=== PATIENT | female | born 1960 | race Caucasian/White ===

== ENCOUNTER → 2016-11-01 | Outpatient (CLI) | payer OTHER ==
--- NOTE | 2016-11-02 14:31 | MAMMOGRAPHY REPORT ---
BILATERAL DIGITAL SCREENING MAMMOGRAM TOMOSYNTHESIS WITH CAD: 11/01/2016 CLINICAL HISTORY: Routine screening. Patient has no complaints. TECHNIQUE: Breast tomosynthesis in addition to standard 2D mammography was performed. Current study was also evaluated with a Computer Aided Detection (CAD) system. COMPARISON: Comparison is made to exams dated: 10/24/2015 mammogram, 10/18/2014 mammogram, 10/15/2013 cailin mogram, 09/30/2012 mammogram, 09/24/2011 mammogram, and 03/23/2011 mammogram - [facility] BREAST COMPOSITION: The tissue of both breasts is heterogeneously dense, which may obscure small mas ses. FINDINGS: No suspicious masses, calcifications, or areas of architectural distortion are noted in ei ther breast. There has been no significant interval change compared to prior exams. Scattered bilater al benign-appearing calcifications are not significantly changed. Fluctuating benign-appearing mike s are again noted bilaterally, best seen on the tomosynthesis images, which are considered benign giv en the multiplicity and bilaterality and likely represent cysts, with cysts seen on prior ultrasound exams. IMPRESSION: ACR BI-RADS CATEGORY 2: BENIGN There is no mammographic evidence of malignancy. A 1 year screening mammogram is recommended. The pa tient will receive written notification of the results. Approximately 10% of breast cancers are not detected with mammography. A negative mammographic report should not delay biopsy if a clinically suggestive mass is present. Savannah Huitron M.D. /:11/01/2016 15:58:05 Tank Maker Wood: Maranda Dudley, M, [facility] letter sent: Normal 1/2 BI-RADS Code: ACR BI-RADS Category 2: Benign
== END | disposition home or self-care (01) ==
LOC: C.MAMM 15:30
PROVIDERS: ATTEND Obstetrics & Gynecology
DX: Z12.31 Encounter for screening mammogram for malignant neoplasm of breast (principal)

== ENCOUNTER 2017-05-05 01:54 | Inpatient (IN) | payer BC, OTHER ==
[~2017-05-05] VITALS: Ht 160 cm; Wt 98.1 kg
[2017-05-05] VITALS (30 sets, daily range): BP systolic 86–168; BP diastolic 69–105; PULSE 71–102; TEMP 36.5–37.5; O2SAT 92–99; Ht 160 cm; Wt 98.1 kg
[2017-05-05] MEDS ORDERED: NITROGLYCERIN/D5W 100MCG/ML 20ML SYR ONE (01:55)
[2017-05-05] MEDS ORDERED: MIDAZOLAM HCL 1 MG/ML 2ML VIAL ONE (01:55)
[2017-05-05] MEDS ORDERED: NiCARDipine HCL INJ 2.5 MG/ML 10 ML AMP ONE (01:55)
[2017-05-05] MEDS ORDERED: HEPARIN SOD (PORCINE) 1000 UNIT/ML 10 ML VIAL ONE (01:55)
[2017-05-05] MEDS ORDERED: FENTANYL CITRATE INJ 50 MCG/1 ML 2 ML VIAL ONE (01:56)
[2017-05-05] MEDS: FENTANYL CITRATE INJ 50 MCG/1 ML 2 ML VIAL ONE (01:58)
--- NOTE | 2017-05-05 02:06 | Pre Sedation Assessment ---
Pre Sedation Assessment General Date of Sedation: May 05, 2017. Vital Signs Past 12 Hours Date Time Temp Pulse Resp B/P (MAP) Pulse Ox O2 Delivery O2 Flow Rate FiO2 05/05/17 01:58 36.8 91 20 198/110 94 Room Air Review Cardiovascular: regular rate, rhythm, no edema Lungs: chest non-tender, lungs clear Pre-Sedation Airway Assessment Smoking Status: Never Smoker Hx of Sleep Apnea: No Hx of difficult intubation: No Short Thick Neck: No Thyro-mental Distance: > 3 Finger Breadths Mallampati Classification: Class II ASA Classification: Class III Procedure Planning Contraindications for Sedation: None Current Medications Reviewed: Yes Notes The planned sedation has been discussed with the patient. Informed Consent was obtained. I have identified the patient, determined the appropriateness of sedation and have assessed the patient immediately prior to the procedure. All medicine(s) and interventions are by my order.
[2017-05-05] MEDS ORDERED: METO25TA4 PO (02:11)
[2017-05-05] MEDS ORDERED: ASPI81TA28 PO (02:12)
[2017-05-05] MEDS ORDERED: MULT-506 PO (02:12)
[2017-05-05] MEDS ORDERED: CALC500C3 PO (02:13)
[2017-05-05 02:15] LABS: BASO % 0.6 %; BASO ABS # 0.06 K/uL (0-0.2); EOS % 1.8 %; EOS ABS # 0.17 K/uL (0-0.5); HEMATOCRIT 44.1 % (37-47); HEMOGLOBIN 14.9 g/dL (12.0-16.0); IG# 0.02 K/uL (0.00-0.02); LYMPH % 33.2 %; LYMPH ABS # 3.14 K/uL (1.2-3.4); MEAN CELL VOLUME 86.3 fL (80-100); MEAN CORPUSCULAR HEMOGLOBIN 29.2 pg (25-34); MEAN CORPUSCULAR HGB CONC 33.8 g/dl (32-36); MEAN PLATELET VOLUME 10.3 fL (7.4-10.4); MONO % 5.2 %; MONO ABS # 0.49 K/uL (0.11-0.59); NEUT ABS # 5.57 K/uL (1.4-6.5); PLATELET COUNT 303 K/uL (130-400); RED CELL DISTRIBUTION WIDTH CV 14.3 % (11.5-14.5); RED CELL DISTRIBUTION WIDTH SD 45.3 fL (36.4-46.3); WHITE BLOOD COUNT 9.45 K/uL (4.8-10.8)
[2017-05-05] MEDS ORDERED: ASPIRIN 324 MG CHEW ONE (02:23)
--- NOTE | 2017-05-05 02:26 | EMERGENCY ROOM VISIT NOTE ---
History Report prepared by Malissa: Iftikhar Horvath Under the Supervision of: Dr. Gwen Mcdonnell D.O. First contact with patient: 01:56 Chief Complaint: HEART ALERT Stated Complaint: CHEST PAIN/HEART ALERT History of Present Illness The patient is a 56 year old female who presents to the Emergency Room via EMS with complaints of worsening chest pain that began 2 hours ago. Patient states that the chest pain woke her up from sleep. Patient describes the pain as a 6-8/ 10. She states that after she received one dose of Nitro in the EMS her pain was 2/10. Patient states that her pain is still a 2-3/10 in the ER. Patient denies associated symptoms of shortness of breath. Pertinent past medical history includes SVT. Pertinent family history includes heart attacks on her mother's side. Source of History: patient, EMS Onset: 2 hours ago Position: chest Symptom Intensity: 6-8/10 Timing: worsening Modifying Factors (Relieving): other (Nitro) Associated Symptoms: No SOB Review of Systems See HPI for pertinent positives & negatives. A total of 10 systems reviewed and were otherwise negative. Past Medical & Surgical Medical Problems: (1) Acute chemical pneumonitis (2) Aspiration into respiratory tract (3) BENIGN NEOPLASM LG BOWEL Family History Heart attack Social History Smoking Status: Never Smoker Alcohol Use: none Drug Use: none Marital Status: Housing Status: lives with family Occupation Status: employed Current/Historical Medications Scheduled Aspirin (Aspirin Ec), Unknown Dose PO DAILY Calcium Carbonate (Tums), 1 TAB PO DIRECTED Metoprolol Succinate (Toprol Xl), Unknown Dose PO DAILY Multivitamin (Multivitamin), 1 TAB PO DAILY Allergies Coded Allergies: No Known Allergies (Verified , 05/05/17) Physical Exam Vital Signs Date Time Temp Pulse Resp B/P (MAP) Pulse Ox O2 Delivery O2 Flow Rate FiO2 05/05/17 04:31 36.8 82 20 168/105 96 Mask 13.0 05/05/17 04:00 76 16 165/80 (108) 98 Mask 15 05/05/17 03:45 75 16 160/75 (103) 98 Mask 15 05/05/17 02:08 94 20 173/116 96 Nasal Cannula 2.0 05/05/17 02:04 95 Nasal Cannula 2.0 05/05/17 02:00 94 05/05/17 01:58 36.8 91 20 198/110 94 Room Air Physical Exam HEENT: Head - normocephalic and atraumatic Pupils are equal, round, and reactive to light. Extraocular eye muscles are intact, and sclera are anicteric. Nose - moist nasal mucosa without discharge. Mouth - moist buccal mucosa. Oropharynx is nonerythematous and there is no tonsillar exudate or edema noted. Neck: Supple; no JVD, nuchal rigidity, cervical lymphadenopathy, or auscultated bruits. Heart: Regular rate and rhythm. There is a normal S1 and S2 with no murmurs, clicks, or gallops appreciated. Lungs: Clear to auscultation bilaterally with no wheezes, rales, or rhonchi. Abdomen: Soft, completely nontender, nondistended, with good bowel sounds. There are no palpable pulsatile masses or hepatosplenomegaly. There is no guarding, rigidity, or rebound noted. Extremities: No evidence of cyanosis, clubbing, or edema. There are easily palpable peripheral pulses. Skin: warm and diaphoretic with good turgor and no rashes. Medical Decision & Procedures ER Provider Diagnostic Interpretation: Radiology results as stated below per my interpretation: Chest X-Ray: Mild pulmonary vascular congestion, no obvious plural effusion or consolidation. Laboratory Results Test 05/05/17 02:03 05/05/17 02:05 05/05/17 03:26 Prothrombin Time 10.5 SECONDS (9.0-12.0) Prothromb Time International Ratio 1.0 (0.9-1.1) Activated Partial Thromboplast Time 28.0 SECONDS (21.0-31.0) Partial Thromboplastin Ratio 1.1 Direct Bilirubin < 0.1 mg/dl (0-0.2) Total Creatine Kinase 85 U/L (26-192) Creatine Kinase MB 1.7 ng/ml (0.5-3.6) Creatine Kinase MB Ratio 2.0 (0-3.0) Pro-B-Type Natriuretic Peptide 108 pg/ml (0-900) Bedside Troponin I 0.480 ng/ml (0-0.045) Kaolin Activated Coagulation Time 230 SECONDS (94-140) Laboratory results per my review. Medications Administered Medications (Trade) Dose Ordered Sig/Fabiola Route Start Time Stop Time Status Last Admin Dose Admin Heparin Sodium (Porcine) (Heparin Iv Bolus) 10,000 unit STK-MED ONCE .ROUTE 05/05/17 01:55 05/05/17 01:56 DC 05/05/17 01:55 10,000 UNIT Midazolam HCl (Versed Inj) 2 mg STK-MED ONCE .ROUTE 05/05/17 01:55 05/05/17 01:56 DC 05/05/17 01:55 2 MG Fentanyl Citrate (Fentanyl Inj) 100 mcg STK-MED ONCE .ROUTE 05/05/17 01:58 05/05/17 01:59 DC 05/05/17 01:58 75 MCG Ondansetron HCl (Zofran Inj) 4 mg STK-MED ONCE .ROUTE 05/05/17 03:02 05/05/17 03:03 DC 05/05/17 03:02 4 MG Ondansetron HCl (Zofran Inj) 4 mg STK-MED ONCE .ROUTE 05/05/17 03:14 05/05/17 03:15 DC 05/05/17 03:14 4 MG Eptifibatide (Integrilin Inj) 40 mg STK-MED ONCE IV 05/05/17 03:40 05/05/17 03:41 DC 05/05/17 03:40 40 MG Eptifibatide (Integrilin Inj) 75 mg STK-MED ONCE IV 05/05/17 03:41 05/05/17 03:42 DC 05/05/17 03:41 75 MG Ticagrelor (Brilinta Tab) 180 mg STK-MED ONCE PO 05/05/17 03:47 05/05/17 03:48 DC 05/05/17 03:47 180 MG Metoprolol Tartrate (Lopressor Iv) 5 mg STK-MED ONCE .ROUTE 05/05/17 04:05 05/05/17 04:06 DC 05/05/17 05:09 5 MG Nitroglycerin (Nitroglycerin 2% Oint) 1 inch ONE STAT EXT 05/05/17 04:17 05/05/17 04:18 DC 05/05/17 05:12 1 INCH Promethazine HCl 12.5 mg/Sodium Chloride 50.5 ml @ 204 mls/hr NOW STAT IV 05/05/17 04:18 05/05/17 04:32 DC 05/05/17 05:12 204 MLS/HR ECG Per My Interpretation Indication: chest pain Rate (beats per minute): 91 Rhythm: normal sinus Findings: ST elevation (Significant ST elevation in V3, V4, and V5) ED Course 0154: A heart alert was called. Past medical records reviewed. The patient was evaluated in room B1. A complete history and physical exam was performed. A second IV lock was initiated and labs were drawn as above. A portable chest x- ray was obtained. A 12-lead EKG was obtained. 0201: Patient's electrocardiogram was interpreted by me. 0210: I discussed the case with Dr. Jackson at the bedside. The patient will go to the [facility]. I updated the patient's who arrived at the bedside. Medical Decision The patient is a 56 year old female who presents to the ED with chest pain. Differential diagnosis includes angina, GERD, STEMI, ACS, and aortic dissection. Lab results show normal renal function, glucose = 134, normal LFTs, troponin = 0.5, normal coags, normal white blood cell count, and stable H&H. This is a 56-year-old female patient who presents to the emergency department with an acute AR. A heart alert was called. This was activated based on a prehospital EKG and history. The patient remained hemodynamically stable while here in the emergency department. She had received nitroglycerin in the field which gave her significant relief of her chest discomfort. The patient had taken aspirin. The case was discussed with cardiology at the bedside. She will go to the [facility] emergently. Medication Reconcilliation Current Medication List: was personally reviewed by me Blood Pressure Screening Patient's blood pressure: Elevated blood pressure Addressed as an inpatient. Impression Primary Impression: ST elevation myocardial infarction (STEMI) of anterior wall Critical Care I have personally spent greater than 30 minutes of critical care time in the direct management of this patient. This includes bedside care, interpretation of diagnostic studies, and testing, discussion with consultants, patient, and family members, and other required patient management activities. This 30 minutes is in excess of all separately billable procedures. Scribe Attestation The scribe's documentation has been prepared under my direction and personally reviewed by me in its entirety. I confirm that the note above accurately reflects all work, treatment, procedures, and medical decision making performed by me. Departure Information Dispostion Being Evaluated By Hospitalist Referrals Brianna, Edgardo,M.D. (PCP) Forms HOME CARE DOCUMENTATION FORM, IMPORTANT VISIT INFORMATION, WORK / SCHOOL INSTRUCTIONS Patient Instructions My [facility]
[2017-05-05 02:30] LABS: ALBUMIN 3.8 gm/dl (3.4-5.0); BLOOD UREA NITROGEN 13 mg/dl (7-18); CALCIUM 10.5 mg/dl (8.5-10.1); CARBON DIOXIDE 26 mmol/L (21-32); CREATININE 0.76 mg/dl (0.60-1.20); GLUCOSE 134 mg/dl (70-99); POTASSIUM 3.6 mmol/L (3.5-5.1); SODIUM 139 mmol/L (136-145)
[2017-05-05 02:42] LABS: ALKALINE PHOSPHATASE 74 U/L (45-117); ALT/SGPT 24 U/L (12-78); AST/SGOT 19 U/L (15-37); CKMB 1.7 ng/ml (0.5-3.6); TOTAL PROTEIN 8.1 gm/dl (6.4-8.2)
[2017-05-05] MEDS ORDERED: ONDANSETRON INJ 2 MG/ML 2 ML VIAL ONE ×2 (03:02→03:14)
[2017-05-05] MEDS ORDERED: EPTIFIBATIDE 2 MG/ML 10 ML VIAL IV ONE (03:40)
[2017-05-05] MEDS ORDERED: EPTIFIBATIDE 0.75 MG/ML 75MG VIAL IV ONE (03:41)
[2017-05-05] MEDS ORDERED: TICAGRELOR 90 MG TAB PO ONE (03:47)
[2017-05-05] MEDS ORDERED: NITROGLYCERIN 2% OINTMENT 30GM TUBE EXT ONE (04:05)
[2017-05-05] MEDS ORDERED: METOPROLOL TARTRATE 1 MG/ML VIAL ONE (04:05)
[2017-05-05] MEDS ORDERED: METOPROLOL TARTRATE 1 MG/ML VIAL IV STA (04:08)
[2017-05-05] MEDS ORDERED: NITROGLYCERIN 2% OINTMENT 30GM TUBE EXT STA (04:17)
[2017-05-05] MEDS ORDERED: PROMETHAZINE HCL INJ 12.5 MG in SODIUM CHLORIDE 0.9% 50ML 50 ML IV STA (04:18)
--- NOTE | 2017-05-05 04:33 | Critical Care Consultation ---
Critical Care Consultation Date of Consultation: May 05, 2017. 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 Says has hx of SVT but no prior known similar chest pains. Denies concurrent SOB. EMS provided one NTG and four ASA 81 mg, with noted improvement of chest pain from 8/10 to 2/10 on ED arrival. EMS EKG concerning for STEMI, so heart alert called. She was evaluated by cardiology and underwent an emergent cardiac catheterization. Past Medical/Surgical History PMH: Asthma, reflux esophagitis, hyperlipidemia, paroxysmal SVT, paroxysmal atrial tachycardia, osteoarthritis PSH: Breast lumpectomy, LASIK, cholecystectomy Family History Heart attack Social History Smoking Status: Never Smoker Allergies Coded Allergies: No Known Allergies (Verified , 05/05/17) Home Medications Scheduled Aspirin (Aspirin Ec), Unknown Dose PO DAILY Calcium Carbonate (Tums), 1 TAB PO DIRECTED Metoprolol Succinate (Toprol Xl), Unknown Dose PO DAILY Multivitamin (Multivitamin), 1 TAB PO DAILY Current Inpatient Medications Current Inpatient Medications Medications (Trade) Dose Ordered Sig/Fabiola Route Start Time Stop Time Status Last Admin Dose Admin Promethazine HCl 12.5 mg/Sodium Chloride 50.5 ml @ 204 mls/hr NOW STAT IV 05/05/17 04:18 05/05/17 04:32 Review of Systems Constitutional: No fever Respiratory: + cough, No shortness of breath Cardiovascular: + chest pain, No edema Abdomen: + nausea Musculoskeletal: No joint pain Neurologic: + numbness/tingling (jaw) Physical Exam Date Time Temp Pulse Resp B/P (MAP) Pulse Ox O2 Delivery O2 Flow Rate FiO2 05/05/17 04:00 76 16 165/80 (108) 98 Mask 15 05/05/17 03:45 75 16 160/75 (103) 98 Mask 15 05/05/17 02:08 94 20 173/116 96 Nasal Cannula 2.0 05/05/17 02:04 95 Nasal Cannula 2.0 05/05/17 02:00 94 05/05/17 01:58 36.8 91 20 198/110 94 Room Air Gen: Awake, alert, oriented, appears a bit nervous with some improved chest pressure. HEENT: NCAT, PERRL, EOMI, moist oral MM, supple neck. CV: + S1S2 RRR, no murmurs Pulm: Mildly tight breath sounds throughout. Not in acute respiratory distress. Abd: + BS, soft, non-tender, non-distended. Ext: Strength 5/5 distally in all extremities. Moving all extremities easily. No peripheral edema. Right wrist TR band in place. Neuro: No acute focal neuro deficits. Laboratory Results Last 24 Hours Test 05/05/17 02:03 05/05/17 02:05 05/05/17 02:46 05/05/17 03:26 White Blood Count 9.45 K/uL Red Blood Count 5.11 M/uL Hemoglobin 14.9 g/dL Hematocrit 44.1 % Mean Corpuscular Volume 86.3 fL Mean Corpuscular Hemoglobin 29.2 pg Mean Corpuscular Hemoglobin Concent 33.8 g/dl Platelet Count 303 K/uL Mean Platelet Volume 10.3 fL Neutrophils (%) (Auto) 59.0 % Lymphocytes (%) (Auto) 33.2 % Monocytes (%) (Auto) 5.2 % Eosinophils (%) (Auto) 1.8 % Basophils (%) (Auto) 0.6 % Neutrophils # (Auto) 5.57 K/uL Lymphocytes # (Auto) 3.14 K/uL Monocytes # (Auto) 0.49 K/uL Eosinophils # (Auto) 0.17 K/uL Basophils # (Auto) 0.06 K/uL RDW Standard Deviation 45.3 fL RDW Coefficient of Variation 14.3 % Immature Granulocyte % (Auto) 0.2 % Immature Granulocyte # (Auto) 0.02 K/uL Prothrombin Time 10.5 SECONDS Prothromb Time International Ratio 1.0 Activated Partial Thromboplast Time 28.0 SECONDS Partial Thromboplastin Ratio 1.1 Sodium Level 139 mmol/L Potassium Level 3.6 mmol/L Chloride Level 103 mmol/L Carbon Dioxide Level 26 mmol/L Anion Gap 10.0 mmol/L Blood Urea Nitrogen 13 mg/dl Creatinine 0.76 mg/dl Est Creatinine Clear Calc Drug Dose 92.8 ml/min Estimated GFR () 100.2 Estimated GFR (Non- 86.5 BUN/Creatinine Ratio 17.3 Random Glucose 134 mg/dl Calcium Level 10.5 mg/dl Total Bilirubin 0.3 mg/dl Direct Bilirubin < 0.1 mg/dl Aspartate Amino Transf (AST/SGOT) 19 U/L Alanine Aminotransferase (ALT/SGPT) 24 U/L Alkaline Phosphatase 74 U/L Total Creatine Kinase 85 U/L Creatine Kinase MB 1.7 ng/ml Creatine Kinase MB Ratio 2.0 Troponin I 0.573 ng/ml Pro-B-Type Natriuretic Peptide 108 pg/ml Total Protein 8.1 gm/dl Albumin 3.8 gm/dl Bedside Troponin I 0.480 ng/ml Kaolin Activated Coagulation Time 252 SECONDS 230 SECONDS Diagnostic Results Procedure(s) Performed Coronary Angiography, 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 - Moderate caliber 1st diagonal with 80% proximal stenosis Circumflex - Small vessel, 40% ostial stenosis; luminal irregularities in distal vessel and OM3. RCA - Dominant, large vessel, 20-30% ostial stenosis; distal luminal irregularities. -- PCI -- Antithrombotic therapy: Heparin, Integrilin, Ticagrelor Procedure: LM cannulated with EBU 3.5 guide BMW placed into 1st diagonal Prowater wire passed across lesion into distal LAD Proximal LAD lesion predilated with 2.0 compliant balloon Proximal diagonal predilated with 2.0 compliant balloon Dilated diagonal lesion stented with 2.25 x 15 Xience ORLIN back to ostium Proximal LAD stented with 2.75 x 18 Xience ORLIN across take-off of 1st diagonal LAD stent post-dilated with 3.0 noncompliant balloon Diagonal re-wired and stent struts dilated with 2.0 balloon. LAD stent just prior to diagonal appeared hazy, possibly underexpanded and post- dilated again with 3.5 NC balloon. After post-dilation patient developed chest pain, nausea with several episodes of vomiting and ST depressions Repeat angiography revealed RENATO 2 flow in LAD with distal occlusion and new apparent thrombus in diagonal Treated with IC vasodilators, integrilin and gentle balloon inflation in diagonal/distal LAD --> flow re-established Still with mild haziness proximal to to LAD stent and 3.0 x 8 Xience overlapped proximally with prior LAD stent IC vasodilators administered for spasm Post procedure RENATO 3 flow, stents well expanded with minimal residual stenosis. Minimal thrombus in diagonal but no other apparent complications. Patient with mild residual pain and nausea Arterial Closure: TR Band Summary: 1. ACS/Acute thrombotic 90% proximal LAD lesion involving take-off of 1st diagonal with 80% proximal disease. 2. Mild to moderate non-culprit vessel coronary artery disease - 40% ostial circumflex - 20-30% ostial RCA 3. Successful PCI of proximal LAD/diagonal bifurcation with 3 total Xience ORLIN ( 2 LAD 3.0 x 8, 2.75 x 18; 1 Diagonal 2.25 x 15) Recommendations: Admit to ICU for continued monitoring Continue integrilin for 12 hours Nitro paste, morphine for residual chest pain. 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 No suspected acute neuro issues. Pulm: Denies SOB. Normal room SpO2. Clear to auscultation. pCXR clear ( official radiology read pending). No suspected intrinsic acute pulmonary issues. However, did reportedly have a couple episodes of emesis at end of cath. PMH mild asthma as well. - Requiring 15L oxymask for SpO2 93%. Concern for aspiration s/p cath. Ordered pCXR. - Morning rounds addendum: pCXR concerning for an aspiration pneumonitis. Unasyn started by primary team, but will d/c for now. If this chemical pneumonitis does not resolve in the next 48 hours, would consider restart antibiotics then. Procalcitonin was negative. BCx x 2 sent. CVS: STEMI. ED TnI 0.573. BNP 108. Cardiac cath (early this morning) report noted (1) ACS/Acute thrombotic 90% proximal LAD lesion involving take-off of 1st diagonal with 80% proximal disease. (2) Mild to moderate non-culprit vessel coronary artery disease (3) 40% ostial circumflex - 20-30% ostial RCA (4) Successful PCI of proximal LAD/diagonal bifurcation with 3 total Xience ORLIN (2 LAD 3.0 x 8, 2.75 x 18; 1 Diagonal 2.25 x 15). - See above "diagnostic results" cardiology post-cath recommendations. - On arrival to the ICU, post-procedure BP elevated, treated with metoprolol 5 mg IV and NTG one inch to chest. Chest pressure improving. ID: Afebrile. ED WBC 9.4. No suspected acute infectious issues, though see "pulm" above. Endo: No known underlying endocrine issues. ED glucose 134. Monitoring. Renal/Lytes: Cr 0.76. Ca 10.5. Monitoring. - Morning rounds addendum: Providing K dur replacement. GI: ED normal LFT's. No suspected acute intrinsic GI issues, though has post- procedure nausea. Tx with zofran and phenergan. Heme: ED Hb 14.9. INR 1.0. On Integrilin immediately post-cath. Monitoring. Skin: Right TR band in place. Standard site monitoring & post-cath precautions. Lines: Right AC PIV, Left AC PIV. Code status: Full code. DVT prophy: Heparin. PT/OT: Pending. Disposition: ICU s/p catheterization. Resident Physician Supervision Note: Dr. Balderas was resident physician during care of patient. I separately evaluated patient and did history and exam. I discussed the case with the resident and generally agree with the findings and plan. Patient critically ill due to ST elevation NH and aspiration with chemical pneumonitis leading to acute hypoxic respiratory failure. Discontinued antibiotics, if aspiration event does not improve in 48 hours would continue starting at that time. Current treatment paradigms consider early antibiotics of no benefit and possibly select for resistant organisms. I have personally spent 35 minutes of critical care time in the direct management of this patient. This is a life/limb threatening event. This includes time spent evaluating patient, direct bedside care, chart review, placing orders, interpretation of diagnostic studies, discussion with consultants, patient, and/or family members regarding treatment decisions, as well as other required patient management activities. This time is exclusive of all separately billable procedures, and teaching time and separate from and in addition to any other critical care service time. Documented By: Jorden Taylor DO Resident Tracking Resident Involvement: Resident Care Provided Care Provided: Adult Hospital Medicine (ICU care)
--- NOTE | 2017-05-05 04:38 | Cardiac Catheterization ---
Procedure Note Procedure Date May 05, 2017. Pre-Procedure Diagnosis STEMI AUC Score 9 Post-Procedure Diagnosis Severe CAD, Successful PCI Procedure(s) Performed Coronary Angiography, Drug Eluting Stent Grain Elevator Man Manuel Staff Electrical Engineer(s) Sheryl Estimated Blood Loss 20 Medication(s) Integrilin, Nicardipine, Nitroglycerin, Versed, Lidocaine 1% Summary of Findings Indication: STEMI/Heart Alert Access: 6Fr Right Radial Artery Catheters: JR4, EBU 3.5 guides Findings: LM - Short almost separate ostium LAD - Moderate caliber vessel, 90% hazy/thrombotic proximal stenosis just before take-off of 1st diagonal; distal vessel tapers to apex. - Moderate caliber 1st diagonal with 80% proximal stenosis Circumflex - Small vessel, 40% ostial stenosis; luminal irregularities in distal vessel and OM3. RCA - Dominant, large vessel, 20-30% ostial stenosis; distal luminal irregularities. -- PCI -- Antithrombotic therapy: Heparin, Integrilin, Ticagrelor Procedure: LM cannulated with EBU 3.5 guide BMW placed into 1st diagonal Prowater wire passed across lesion into distal LAD Proximal LAD lesion predilated with 2.0 compliant balloon Proximal diagonal predilated with 2.0 compliant balloon Dilated diagonal lesion stented with 2.25 x 15 Xience ORLIN back to ostium Proximal LAD stented with 2.75 x 18 Xience ORLIN across take-off of 1st diagonal LAD stent post-dilated with 3.0 noncompliant balloon Diagonal re-wired and stent struts dilated with 2.0 balloon. LAD stent just prior to diagonal appeared hazy, possibly underexpanded and post- dilated again with 3.5 NC balloon. After post-dilation patient developed chest pain, nausea with several episodes of vomiting and ST depressions Repeat angiography revealed RENATO 2 flow in LAD with distal occlusion and new apparent thrombus in diagonal Treated with IC vasodilators, integrilin and gentle balloon inflation in diagonal/distal LAD --> flow re-established Still with mild haziness proximal to to LAD stent and 3.0 x 8 Xience overlapped proximally with prior LAD stent IC vasodilators administered for spasm Post procedure RENATO 3 flow, stents well expanded with minimal residual stenosis. Minimal thrombus in diagonal but no other apparent complications. Patient with mild residual pain and nausea Arterial Closure: TR Band Summary: 1. ACS/Acute thrombotic 90% proximal LAD lesion involving take-off of 1st diagonal with 80% proximal disease. 2. Mild to moderate non-culprit vessel coronary artery disease - 40% ostial circumflex - 20-30% ostial RCA 3. Successful PCI of proximal LAD/diagonal bifurcation with 3 total Xience ORLIN ( 2 LAD 3.0 x 8, 2.75 x 18; 1 Diagonal 2.25 x 15) Recommendations: Admit to ICU for continued monitoring Continue integrilin for 12 hours Nitro paste, morphine for residual chest pain. Loaded with Ticagrelor in clinical lab specialist Continue dual-antiplatelet therapy for 1 year Trend troponins until peak, Check Echo in AM Uptitrate beta-randy/CARLI as BP allows High-dose statin Consult cardiac Rehab Hemodynamics Rest Ao: 174/97/131 Final Ao: 120/73/94 LV: -- Recommendations PCI without planned CABG Specimens None Radiation Exposure (mGy) 1890 Contrast (mls) 240 Fluids (cc crystalloids) 150 Drains None Anesthesia Moderate Procedural Complication(s) None Disposition ICU ACC Data Cardiac Status Clinical evaluation leading to the procedure CAD Presntation: STEMI Anginal Classification: CCS IV Heart Failure: No, NYHA Class: CCS I Cardiogenic Shock w/in 24Hrs: No Cardiac Arrest w/in 24Hrs: No Imaging studies past 6 months: No Stress studies past 6 months: No Closure Device Percutaneous Entry Location: Radial Closure Device: Radial Band Recommendations: PCI without planned CABG PCI Indication: Immediate PCI for STEMI Lesion Segment Name: Proximal LAD Culprit Artery: Yes Stenosis Prior to Rx (%): 90 Chronic Total Occlusion: No IVUS: No FFR: No Pre-Procedure RENATO Flow: 3 Previously Treated Lesion: No Lesion Complexity: High/C Lesion Length (mm): 15 Thrombus Present: Yes Bifurcation Lesion: Yes Guidewire Across Lesion: Yes Guidewire: Stenosis Post-Procedure (%): 0 Post-Procedure RENATO Flow: 3 Device(s) Deployed: Yes Intraprocedure Events Significant Dissection: No Perforation: No
[2017-05-05] MEDS ORDERED: MoRPHine SULFATE 4 MG/ML 1 ML CARP\\VIAL IV PRN (04:45)
[2017-05-05] MEDS ORDERED: ICU PROTOCOL FOR HYPERGLYCEMIA PRN (04:45)
[2017-05-05] MEDS ORDERED: MoRPHine SULFATE 2 MG/ML CARP IV PRN (04:45)
[2017-05-05] MEDS ORDERED: MAGNESIUM HYDROXIDE SUSP 30 ML UDC PO PRN (04:45)
[2017-05-05] MEDS ORDERED: ALUMINUM/MAGNESIUM/SIMETH (MAALOX MAX) 30 ML UDC PO PRN (04:45)
[2017-05-05] MEDS ORDERED: ACETAMINOPHEN 325 MG TAB PO PRN (04:45)
[2017-05-05] MEDS ORDERED: NITROGLYCERIN 0.4 MG SL PER TAB CHARGE SL PRN ×2 (04:45)
[2017-05-05] MEDS ORDERED: EPTIFIBATIDE BOLUS / DRIP IV ONE (04:45)
[2017-05-05] MEDS ORDERED: ONDANSETRON INJ 2 MG/ML 2 ML VIAL IV PRN (04:45)
[2017-05-05] MEDS ORDERED: SODIUM CHLORIDE 0.9% 500ML 500 ML IV SCH (05:00)
[2017-05-05] MEDS ORDERED: LORAZEPAM 2 MG/ML 1 ML VIAL IV PRN (05:00)
[2017-05-05] MEDS: EPTIFIBATIDE INJ 75 MG PREMIXED IV SCH ×2 (05:16→08:06)
--- NOTE | 2017-05-05 05:25 | History and Physical ---
History & Physical Date & Time of Service: May 05, 2017 at 05:05 Chief Complaint: Stemi Of Anterior Wall Primary Care Physician: Edgardo Reed M.D. History of Present Illness 56 year old female with a past history of palpitations/SVT who presented to the ED as a heart alert. EKG demonstrated ST elevation in the anterolateral leads. The patient was taken immediately to the cardiac catheterization where she had 3 drug-eluting stents deployed Proximal LAD/Proximal Diagonal. It was noted that she had an episode of emesis towards the end of the procedure with concern for possible aspiration. At the time that I made first contact in the ICU, the patient reports she has continued chest discomfort, currently rated 3/10 and radiating to jaw. She does state that the pain is markedly improved from when she first came in. She also reports being short of breath and feeling wheezy. She has not been coughing. She reports mild nausea. She denies abdominal pain. She has not voided since arrival to the hospital. She also states that she is currently feeling quite shaky but has not had fevers , or sweats. A 10 point review of systems was negative unless stated above. Past Medical/Surgical History Medical Problems: (1) BENIGN NEOPLASM LG BOWEL Status: Resolved (2) No Known Active Medical Problems Status: Chronic Family History Heart attack Social History Smoking Status: Never Smoker Smokeless Tobacco Use: No Alcohol Use: none Drug Use: none Marital Status: Housing status: lives with family Occupational Status: employed Multi-Drug Resistant Organisms History of MDRO: No Allergies Coded Allergies: No Known Allergies (Verified , 05/05/17) Home Medications Scheduled Aspirin (Aspirin Ec), Unknown Dose PO DAILY Calcium Carbonate (Tums), 1 TAB PO DIRECTED Metoprolol Succinate (Toprol Xl), Unknown Dose PO DAILY Multivitamin (Multivitamin), 1 TAB PO DAILY Review of Systems A 10 point review of systems was negative unless stated above. Physical Exam Vital Signs Date Time Temp Pulse Resp B/P (MAP) Pulse Ox O2 Delivery O2 Flow Rate FiO2 05/05/17 04:31 36.8 82 20 168/105 96 Mask 13.0 05/05/17 04:00 76 16 165/80 (108) 98 Mask 15 05/05/17 03:45 75 16 160/75 (103) 98 Mask 15 05/05/17 02:08 94 20 173/116 96 Nasal Cannula 2.0 05/05/17 02:04 95 Nasal Cannula 2.0 05/05/17 02:00 94 05/05/17 01:58 36.8 91 20 198/110 94 Room Air General Appearance: WD/WN, + obese Head: normocephalic, atraumatic Eyes: normal inspection, EOMI ENT: hearing grossly normal, pharynx normal Neck: supple, no adenopathy, no JVD Respiratory/Chest: lungs clear, + pertinent finding (coarse breath sounds R > L ; no wheezing) Cardiovascular: regular rate, rhythm, no gallop, no murmur, + tachycardia ( sinus) Abdomen/GI: normal bowel sounds, non tender, soft Back: no muscle spasm Extremities/Musculoskelatal: no calf tenderness, no pedal edema Neurologic/Psych: alert, normal mood/affect, oriented x 3 Skin: normal color, warm/dry, no rash Lymphatic: no adenopathy Diagnostics Laboratory Results Results Past 24 Hours Test 05/05/17 02:03 05/05/17 02:05 05/05/17 02:46 05/05/17 03:26 Range/Units White Blood Count 9.45 4.8-10.8 K/uL Red Blood Count 5.11 4.2-5.4 M/uL Hemoglobin 14.9 12.0-16.0 g/dL Hematocrit 44.1 37-47 % Mean Corpuscular Volume 86.3 80-100 fL Mean Corpuscular Hemoglobin 29.2 25-34 pg Mean Corpuscular Hemoglobin Concent 33.8 32-36 g/dl Platelet Count 303 130-400 K/uL Mean Platelet Volume 10.3 7.4-10.4 fL Neutrophils (%) (Auto) 59.0 % Lymphocytes (%) (Auto) 33.2 % Monocytes (%) (Auto) 5.2 % Eosinophils (%) (Auto) 1.8 % Basophils (%) (Auto) 0.6 % Neutrophils # (Auto) 5.57 1.4-6.5 K/uL Lymphocytes # (Auto) 3.14 1.2-3.4 K/uL Monocytes # (Auto) 0.49 0.11-0.59 K/uL Eosinophils # (Auto) 0.17 0-0.5 K/uL Basophils # (Auto) 0.06 0-0.2 K/uL RDW Standard Deviation 45.3 36.4-46.3 fL RDW Coefficient of Variation 14.3 11.5-14.5 % Immature Granulocyte % (Auto) 0.2 % Immature Granulocyte # (Auto) 0.02 0.00-0.02 K/uL Prothrombin Time 10.5 9.0-12.0 SECONDS Prothromb Time International Ratio 1.0 0.9-1.1 Activated Partial Thromboplast Time 28.0 21.0-31.0 SECONDS Partial Thromboplastin Ratio 1.1 Sodium Level 139 136-145 mmol/L Potassium Level 3.6 3.5-5.1 mmol/L Chloride Level 103 98-107 mmol/L Carbon Dioxide Level 26 21-32 mmol/L Anion Gap 10.0 3-11 mmol/L Blood Urea Nitrogen 13 7-18 mg/dl Creatinine 0.76 0.60-1.20 mg/dl Est Creatinine Clear Calc Drug Dose 92.8 ml/min Estimated GFR () 100.2 Estimated GFR (Non- 86.5 BUN/Creatinine Ratio 17.3 10-20 Random Glucose 134 70-99 mg/dl Calcium Level 10.5 8.5-10.1 mg/dl Total Bilirubin 0.3 0.2-1 mg/dl Direct Bilirubin < 0.1 0-0.2 mg/dl Aspartate Amino Transf (AST/SGOT) 19 15-37 U/L Alanine Aminotransferase (ALT/SGPT) 24 12-78 U/L Alkaline Phosphatase 74 45-117 U/L Total Creatine Kinase 85 26-192 U/L Creatine Kinase MB 1.7 0.5-3.6 ng/ml Creatine Kinase MB Ratio 2.0 0-3.0 Troponin I 0.573 0-0.045 ng/ml Pro-B-Type Natriuretic Peptide 108 0-900 pg/ml Total Protein 8.1 6.4-8.2 gm/dl Albumin 3.8 3.4-5.0 gm/dl Bedside Troponin I 0.480 0-0.045 ng/ml Kaolin Activated Coagulation Time 252 230 94-140 SECONDS Test 05/05/17 04:38 05/05/17 04:53 Range/Units Diagnostic Radiology Right lung opacification increased this AM compared to admission Final reports for both CXRs pending EKG ST & T wave abnormality, consider inferior ischemia Abnormal ECG When compared with ECG of 07-JUL-2013 00:43, Premature atrial complexes are no longer Present Non-specific change in ST segment in Inferior leads ST elevation now present in Lateral leads T wave inversion now evident in Inferior leads T wave inversion now evident in Anterior leads Impression Assessment and Plan 56 year old female with PMHx of SVT who presents with acute chest pain and is now immediately s/p cardiac catheterization with ORLIN placement x 3 in the Proximal LAD and Diagonal. Her problem list includes: - ACS: STEMI - S/p Cardiac catheterization: 90% stenosis proximal LAD; Proximal diagonal with 80% stenosis; 40% ostial circumflex; 20-30% ostial RCA - S/p PCI and ORLIN stenting proximal LAD x 2 + Diagonal bifurcation x 1 - Suspected aspiration pneumonia - History of SVT Our plan for her is as follows: NEUROLOGICAL - GCS: 15; AO x 3 - Pain regimen: Morphine 2-4 mg q4h PRN pain CARDIAC - BP: 160- 170 systolic MAP: Low 100s (Goal> 65) - Vasopressor support: None required at this time - IV Fluids: NSS at 75 ml/hr - Nitro PRN for chest pain; - EKG in the AM x 2 - Echocardiogram in the AM - Cardiology consulted; recommendations appreciated - Patient is currently on Integrilin infusion - Secondary therapies ordered: ASA, Ticagrelor, Atorvastatin, Lisinopril and Metoprolol tartrate RESPIRATORY - Concern for possible aspiration PNA after episode of emesis in cardiac laboratory apparatus glass blower - 15 L by oxymask on arrival --> have been able to wean to 2 L oxymask with single nebulizer treatment - Stat CXR ordered: Right lung opacification new from admission CXR - Xopenex/Atrovent Nebs q6h: nebulizer did appear to decrease O2 support for the patient - Incentive Spirometry GASTROINTESTINAL - Diet: AHA diet - GI Prophylaxis: Pantoprazole 40 mg PO daily RENAL//ENDOCRINE - Cr: 0.7 (at baseline) eGFR 88 (no previous baseline) - IV Fluids: NSS at 75 ml/hr - Monitor daily I/O, weights - BSG: AC/HS checks HbA1c pending - Lipid profile pending HEME/ID - Tmax: 36.8 - On arrival: WBC: 9 Hb/Hct 14/44 - Possible aspiration pneumonia: CXR with worsening right-sided consolidation - Lactate, Procalcitonin, repeat WBC pending - Blood cultures x 2 ordered and pending Unasyn IV started Nebulizers as above Incentive spirometer - DVT Prophylaxis: Heparin 5000 U TID LINES/IV ACCESS - 2 x 18 G peripherals bilateral AC CODE STATUS - Full Code DISPOSITION - OT/PT: ordered - ICU while on Integrilin infusion - Office Support Assistant consulted Resident Physician Supervision Note: I was present with Dr. Shelton during the history and exam. I discussed the case with the resident and agree with the findings and plan as documented in the note. Any exceptions or clarifications are listed here: 56 y/o F Hx NSVT with no additional active issues - presented as an STEMI/heart alert to the ER. She proceeded directly to the laboratory apparatus glass blower. The catheterization was complicated and ultimately resulted in 3 stens - 2 to her ALD and 1 to a diagonal branch. During the procedure she developed nausea and vomiting and likely aspirated. She was transferred to the ICU. She was initially hypoxic requiring 10L 02, however, she appeared to improve and is comfortable on 2L following a breathing treatment. OE AAO x 3 S1,2 borderline tachy Reduced air entry into R lung NT, ND No CCE No deficits P: STEMI - pt will remain on Integrilin for an additional 12 hours and has been placed onj Brillinta per cardiology. EKGs have been variable - reviewed with cardiology and unlikely to present stent thrombosis - her CP has improved. Aspiration - XR shows clear R sided infiltration - placed on Unasyn and Nebs - to be evaluated by casting finisher this AM. Nausea and vomiting - nausea persists but is imprving - antiemetics provided. Documented By: Derrick Montiel Level of Care Critical Care Advanced Directives Existing Living Will: No Existing Power of Demo Coordinator: No Resuscitation Status FULL RESUSCITATION VTE Prophylaxis VTE Risk Assessment Done? Y/N: Yes Risk Level: Moderate Given or contraindicated: Unfractionated heparin SQ
[2017-05-05] MEDS ORDERED: AMPICILLIN/SULBACTAM SOD INJ 3,000 MG in SODIUM CHLORIDE 0.9% 100ML 100 ML IV SCH (06:00)
[2017-05-05 06:19] LABS: HEMATOCRIT 47.9 % (37-47); MEAN CELL VOLUME 86.8 fL (80-100); MEAN CORPUSCULAR HGB CONC 33.4 g/dl (32-36); MEAN PLATELET VOLUME 10.5 fL (7.4-10.4); PLATELET COUNT 339 K/uL (130-400); RED CELL DISTRIBUTION WIDTH CV 14.3 % (11.5-14.5); RED CELL DISTRIBUTION WIDTH SD 45.8 fL (36.4-46.3); WHITE BLOOD COUNT 14.94 K/uL (4.8-10.8)
[2017-05-05 06:40] LABS: BASO % 0.1 %; BASO ABS # 0.02 K/uL (0-0.2); EOS % 0.2 %; EOS ABS # 0.03 K/uL (0-0.5); IG# 0.04 K/uL (0.00-0.02); LYMPH ABS # 2.01 K/uL (1.2-3.4); MONO % 3.3 %; MONO ABS # 0.51 K/uL (0.11-0.59); NEUT % 83.1 %; NEUT ABS # 12.85 K/uL (1.4-6.5)
[2017-05-05 06:55] LABS: ALBUMIN 3.7 gm/dl (3.4-5.0); CALCIUM 9.9 mg/dl (8.5-10.1); CREATININE 0.82 mg/dl (0.60-1.20); PHOSPHORUS 3.1 mg/dl (2.5-4.9); POTASSIUM 3.4 mmol/L (3.5-5.1); TOTAL PROTEIN 8.5 gm/dl (6.4-8.2)
[2017-05-05] MEDS ORDERED: PERFLUTREN LIPID MICROSPHERE (DEFINITY) IV ONE (07:24)
[2017-05-05] MEDS: IPRATROPIUM BROMIDE NEB SOLN 0.02% 2.5 ML VIAL INH SCH ×3 (07:32→19:42)
[2017-05-05] MEDS: METOPROLOL TARTRATE 25 MG TAB PO SCH ×2 (07:33→20:01)
[2017-05-05] MEDS: LEVALBUTEROL 1.25MG/0.5ML NEB INH SCH ×3 (07:33→19:42)
[2017-05-05] MEDS: PANTOprazole SOD 40 MG TAB PO SCH (07:33)
[2017-05-05] MEDS: ATORVASTATIN 40 MG TAB PO SCH (07:33)
[2017-05-05] MEDS: ASPIRIN 81 MG ECTAB PO SCH (07:33)
[2017-05-05] MEDS: LISINOPRIL 5 MG TAB PO SCH (07:34)
[2017-05-05] MEDS: HEPARIN SOD 5000 UNIT/0.5 ML CARP SQ SCH ×3 (07:36→22:47)
[2017-05-05] MEDS ORDERED: POTASSIUM CHLORIDE 10 MEQ TABCR PO STA (07:40)
[2017-05-05] MEDS ORDERED: ALBUT/IPRATROP 3MG/0.5MG NEB 3 ML VIAL INH SCH (08:00)
[2017-05-05] MEDS ORDERED: INFLUENZA VIRUS QUAD VACCINE 0.5 ML SYR IM. ONE (08:00)
[2017-05-05] MEDS ORDERED: INFLUENZA ADMINISTRATION CHARGE ONE (08:00)
--- NOTE | 2017-05-05 08:25 | CARDIOLOGY CONSULTATION ---
DATE OF CONSULTATION: 05/05/2017 REASON FOR CONSULTATION: Heart alert/STEMI. HISTORY OF PRESENT ILLNESS: Mrs. Overton is a 56-year-old woman with a history of palpitations, paroxysmal SVT, atrial tachycardia, hyperlipidemia, who presented today with approximately 1 hour of substernal chest pain. The patient was in her usual state of health, was actually sleeping when all of a sudden developed substernal chest pain. Initially thought it was reflux but pain persisted and eventually called EMS. EKG on arrival showed anterior ST elevations and a heart alert was activated from the field. Upon arrival to the ED, she continued to have inferior ST elevations. She had stuttering 4/10 chest pain and decision was made to take her to the cardiac catheterization lab. PAST MEDICAL HISTORY: 1. Paroxysmal supraventricular tachycardia. 2. Paroxysmal atrial tachycardia. 3. Hyperlipidemia. 4. GERD. 5. Asthma. PAST SURGICAL HISTORY: Status post breast lumpectomy and prior cholecystectomy. FAMILY HISTORY: Coronary artery disease including mother who had coronary disease and CABG. SOCIAL HISTORY: Denies alcohol, drugs or tobacco. 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 HOME MEDICATIONS: Include fish oil, multiple vitamin, Toprol-XL 100 mg daily and metoprolol tartrate 25 mg as needed. OTHER MEDICATIONS: Ventolin HFA inhaler. REVIEW OF SYSTEMS: Not completed as it was an emergent situation. ALLERGIES: No known drug allergies. PHYSICAL EXAMINATION: VITAL SIGNS: Temperature 36.8, pulse 91, blood pressure 198/110, satting 94% on room air. GENERAL: The patient appears uncomfortable but in no acute distress. HEENT: Sclerae anicteric. Oropharynx clear. LUNGS: Clear to auscultation bilaterally. HEART: Regular rate and rhythm with no murmurs, rubs or gallops. ABDOMEN: Soft, nontender. EXTREMITIES: Warm. She has intact distal pulses. She has no lower extremity edema. She has 2+ radial pulse on the right. SKIN: Shows no rashes or lesions. NEUROLOGIC: Grossly nonfocal. PSYCHIATRIC: Alert and appropriate. DATA: All lab work pending. Initial chest x-ray pending. EKG again showed sinus tachycardia with inferior ST elevations. IMPRESSION AND PLAN: 1. Anterior ST-segment elevation myocardial infarction. 2. Family history of coronary artery disease. 3. Hyperlipidemia. 4. History of paroxysmal supraventricular tachycardia. 5. Hypertension. Mrs. Overton is here with acute onset substernal chest pain waking her from sleep. She was found to have anterior ST elevations on EKG with persistent chest pain here on arrival. We will plan to treat emergently and proceed with cardiac catheterization. Risks, benefits and alternatives of procedure were discussed with the patient and she is willing to proceed. Further recommendations pending findings on cardiac catheterization. TUSHARD
--- NOTE | 2017-05-05 08:51 | DIAGNOSTIC IMAGING REPORT ---
CHEST ONE VIEW PORTABLE CLINICAL HISTORY: s/p emesis, eval for aspiration infiltrate COMPARISON STUDY: Chest radiograph May 05, 2017 at 2:01 AM. FINDINGS: No pneumothorax or pleural effusion is noted. There has been significant progression of asymmetric right lung airspace opacity since exam performed earlier today. Diffuse interstitial thickening persists. Cardiomediastinal silhouette is stable. IMPRESSION: Significant progression of extensive right lung airspace opacity since exam performed earlier this morning with persistent diffuse interstitial thickening. The findings may reflect asymmetric pulmonary edema or pneumonia. Electronically signed by: Varinder Joseph M.D. 05/05/2017 8:50 AM Dictated Date/Time: 05/05/2017 8:48 AM
[2017-05-05] MEDS ORDERED: LEVALBUTEROL/IPRATROPIUM NEB INH SCH (09:00)
--- NOTE | 2017-05-05 09:26 | DIAGNOSTIC IMAGING REPORT ---
CHEST ONE VIEW PORTABLE CLINICAL HISTORY: Chest pain. COMPARISON STUDY: Chest radiograph July 07, 2013. FINDINGS: Lung volumes are normal. Mild cardiomegaly is noted. There is mild interstitial thickening. There is no consolidation. No pneumothorax or pleural effusion is noted. IMPRESSION: Pulmonary vascular congestion with suspected mild pulmonary edema. Electronically signed by: Varinder Joseph M.D. 05/05/2017 9:25 AM Dictated Date/Time: 05/05/2017 9:24 AM
[2017-05-05] MEDS: ACETAMINOPHEN 325 MG TAB PO PRN (13:53)
--- NOTE | 2017-05-05 14:35 | Progress Note ---
Progress Note Date of Service May 05, 2017. Progress Note Spoke at length with pt this morning, introduced hospitalist team. Pt resting in ICU bed with Christiano at bedside. Notes some discomfort in her mid back, but is otherwise comfortable. Says she does not like strong analgesics like codeine because it makes her feel weird. I suggested tylenol given that pain is likely due to laying on the table and tolerating the procedure early this morning. Pt is otherwise resting comfortably. I discussed the function of our team and that she will be transitioned eventually out of the ICU once her recovery is stable. Pt verbalized understanding, I answered all questions. Resident Tracking Resident Involvement: Resident Care Provided Care Provided: Adult Hospital Medicine
[2017-05-05] MEDS ORDERED: Integrelin infusion --> STOP ORDER ONE (16:00)
--- NOTE | 2017-05-05 16:07 | ECHOCARDIOGRAM REPORT ---
*NOTICE TO RECEIVING REPUBLICAN AGENCY This information is strictly Confidential and protected under [place] law. [place] law prohibits you from making any further disclosure of this information unless further disclosure is expressly permitted by the written consent of the person to whom it pertains or is authorized by law. A general authorization for the release of medical or other information is not sufficient for this purpose. Hospital accepts no responsibility if the information is made available to any other person, INCLUDING THE PATIENT. Interpretation Summary * Name: JUANCHO POWERS Study Date: 05/05/2017 06:50 AM BP: 130/73 mmHg * Patient Location: .MSICU\S\E107\S\1 HR: 95 * : 1960 (M/d/yyy) Gender: Female Height: 63 in * Age: 56 yrs Ethnicity: CA Weight: 228 lb * Ordering Physician: Serafin Jackson * Referring Physician: Self, Referred * Performed By: Kim Ugarte RDCS * * Reason For Study: AMI * BSA: 2.0 m2 * -- Conclusions -- * 1. Normal LV size and wall thickness. * 2. Mild to moderately reduced LV function. LVEF 40-45%. LAD distribution wall motion abnormality (see bernieseye for details). * 3. Normal RV size and function. * 4. No significant valvular pathology. * 5. Normal estimated RA and PA pressures. * 6. Compared with prior study on 02/23/2013: LV dysfunction and wall motion abnormalities are new. Procedure Details * A contrast injection of Definity was performed to improve assessment of LV function. * Contrast was injected into an intravenous site in the left arm. * One vial of Definity ultrasound contrast was diluted in normal saline to a total volume of 10 ml. A total of '1' ml of solution was administered during imaging. * Lot # [id number] of Definity utilized for procedure. * Expiration date APR 05. * The attending nurse who injected the contrast agent was HERNESTO VENCES RN. Left Ventricle * The left ventricle is grossly normal size. * There is normal left ventricular wall thickness. * Ejection Fraction = 40-45%. * Apical akinesis. Mid anterior, anteroseptal, septal hypokinesis. Right Ventricle * The right ventricle is grossly normal size. * The right ventricular systolic function is normal as assessed by tricuspid annular plane systolic excursion (TAPSE) (normal >1.5 cm). Atria * The left atrial size is normal. * Right atrial size is normal. * No ASD detected; PFO is not assessed. Mitral Valve * The mitral valve is grossly normal. * There is no mitral valve stenosis. * Significant mitral regurgitation is absent. * There is trace mitral regurgitation. Tricuspid Valve * The tricuspid valve is not well visualized. * There is trace tricuspid regurgitation. Aortic Valve * The aortic valve opens well. * No hemodynamically significant valvular aortic stenosis. * There is no significant aortic regurgitation. Pulmonic Valve * The pulmonary valve is inadequately visualized, but the Doppler data is adequate for interpretation. * Pulmonic stenosis is absent. * There is no significant pulmonary regurgitation. Great Vessels * The aortic root and proximal ascending aorta are normal sized. Pericardium/Pleural * There is no pericardial effusion. Great Vessels * Normal inferior vena cava size and collapsability with sniff indicates a normal right atrial pressure of 3 mmHg MMode 2D Measurements and Calculations LA dimension 3.4 cm LVAd ap4 28.2 cm\S\2 LVLd ap4 7.2 cm EDV(MOD-sp4) 89.4 ml EDV(sp4-el) 93.2 ml LVAs ap4 20.9 cm\S\2 LVLs ap4 6.7 cm ESV(MOD-sp4) 52.0 ml ESV(sp4-el) 55.3 ml EF(MOD-sp4) 41.8 % EF(sp4-el) 40.7 % LVAd ap2 31.4 cm\S\2 LVLd ap2 8.0 cm EDV(MOD-sp2) 102.6 ml EDV(sp2-el) 105.3 ml LVAs ap2 22.2 cm\S\2 LVLs ap2 6.8 cm ESV(MOD-sp2) 59.8 ml ESV(sp2-el) 61.4 ml EF(MOD-sp2) 41.7 % EF(sp2-el) 41.7 % LVLd %diff 9.1 % EDV(MOD-bp) 99.7 ml LVLs %diff 2.0 % ESV(MOD-bp) 56.2 ml EF(MOD-bp) 43.6 % SV(MOD-sp4) 37.3 ml SI(MOD-sp4) 18.3 ml/m\S\2 SV(MOD-sp2) 42.8 ml SI(MOD-sp2) 20.9 ml/m\S\2 SV(MOD-bp) 43.5 ml SI(MOD-bp) 21.3 ml/m\S\2 SV(sp4-el) 37.9 ml SI(sp4-el) 18.5 ml/m\S\2 SV(sp2-el) 43.9 ml SI(sp2-el) 21.5 ml/m\S\2 Doppler Measurements and Calculations MV E max myke 84.9 cm/sec MV dec time 0.24 sec Ao V2 max 113.0 cm/sec Ao max PG 5.1 mmHg Ao max PG (full) 2.0 mmHg LV V1 max PG 3.1 mmHg LV V1 max 87.9 cm/sec TR max myke 252.7 cm/sec
[2017-05-05] MEDS: TICAGRELOR 90 MG TAB PO SCH ×2 (20:00→22:46)
--- NOTE | 2017-05-05 20:49 | Cardiology Follow-Up ---
Subjective Subjective Date of Service: May 05, 2017. Pt evaluation today including: conversation w/ patient, conversation w/ family , physical exam, chart review, lab review, review of studies, conversation w/ agricultural consultant, review of inpatient medication list Additional Details: Breathing improved overnight. Mild residual chest pain, radiating to back. Less nauseated. Feels generally fatigued. Tele reviewed -- no arrhythmias ECGs reviewed -- improved anterior ST elevations, inferior TWI Echo reviewed -- LVEF 40-45%. LAD distribution wma Problem List Medical Problems: (1) ST elevation myocardial infarction (STEMI) of anterior wall Status: Acute Review of Systems Constitutional: No fever ENT: + hearing loss Respiratory: + wheezing, + shortness of breath Cardiac: + chest pain Abdomen: + nausea, No pain Female : No dysuria Heme: No abnormal bleeding/bruising Endo: + fatigue Skin: No rash Objective Vital Signs Last Vital Signs Documentation Date Time Temp Pulse Resp B/P (MAP) Pulse Ox O2 Delivery O2 Flow Rate FiO2 05/05/17 16:00 36.5 90 20 122/69 (86) 94 Nasal Cannula 2.0 Physical Exam: General Appearance: no apparent distress, + pertinent finding (uncomfortable, weak) ENT: hearing grossly normal Neck: no JVD Respiratory/Chest: + decreased breath sounds (on the right), + crackles (few scant crackles bilaterally) Cardiovascular: regular rate, rhythm, no murmur Abdomen: normal bowel sounds, non tender, soft Extremities: no pedal edema, no calf tenderness, + pertinent finding (right radial artery access site - no hematoma/ecchymosis; diminished distal pulse) Neurologic/Psychiatric: issuer II-XII nml as tested, normal mood/affect, oriented x 3 Skin: no rash Assessment and Plan 1. Anterior STEMI s/p PPCI with 3 ORLIN (2 to LAD, 1 to Diagonal) 2. LV dysfunctio, LVEF 40-45% 3. Aspiration pneumonitis/[place] 4. Hypertension 5. Dyslipidemia Chest pain improving. Hemodynamically and electrically stable. Troponin peaking No access site complications. Hypoxia/dyspnea improved off antibiotics. -- Integrilin infusion off this afternoon. -- Continue DAPT with ASA/Tigcarelor -- titrate up beta-randy/CARLI as BP allows -- Continue statin -- Likely to telemetry tomorrow. Addendum: Patient in new atrial fibrillation/atrial flutter this afternoon. Mild discomfort in jaw but otherwise asymptomatic. Unresponsive to adenosine, IV metoprolol. In the [place] will start on amiodarone. Start anticoagulation. Plan for triple therapy for at least a month. Medications: Current Inpatient Medications Medications (Trade) Dose Ordered Sig/Fabiola Route Start Time Stop Time Status Last Admin Dose Admin Aspirin (Ecotrin Tab) 81 mg QAM PO 05/05/17 09:00 06/04/17 08:59 05/05/17 07:33 81 MG Al Hydrox/Mg Hydrox/Simethicone (Maalox Max Susp) 15 ml Q4H PRN PO 05/05/17 04:45 06/04/17 04:44 Magnesium Hydroxide (Milk Of Magnesia Susp) 30 ml Q12H PRN PO 05/05/17 04:45 06/04/17 04:44 Ondansetron HCl (Zofran Inj) 4 mg Q6H PRN IV 05/05/17 04:45 06/04/17 04:44 Pantoprazole Sodium (Protonix Tab) 40 mg DAILY PO 05/05/17 09:00 05/08/17 09:01 05/05/17 07:33 40 MG Morphine Sulfate (MoRPHine SULFATE INJ) 2 mg Q2H PRN IV 05/05/17 04:45 05/19/17 04:44 Morphine Sulfate (MoRPHine SULFATE INJ) 4 mg Q2H PRN IV 05/05/17 04:45 05/19/17 04:44 Miscellaneous Information (Icu Protocol For Hyperglycemia) 1 ea PRN PRN N/A 05/05/17 04:45 05/07/17 04:44 Nitroglycerin (Nitrostat Tab) 0.4 mg UD PRN SL 05/05/17 04:45 06/04/17 04:44 Atorvastatin Calcium (Lipitor Tab) 80 mg QAM PO 05/05/17 09:00 06/04/17 08:59 05/05/17 07:33 80 MG Metoprolol Tartrate (Lopressor Tab) 25 mg Q12 PO 05/05/17 09:00 06/04/17 08:59 05/05/17 20:01 25 MG Lisinopril (Zestril Tab) 5 mg QAM PO 05/05/17 09:00 06/04/17 08:59 05/05/17 07:34 5 MG Acetaminophen (Tylenol Tab) 650 mg Q4H PRN PO 05/05/17 04:45 06/04/17 04:44 05/05/17 13:53 650 MG Ticagrelor (Brilinta Tab) 90 mg BID PO 05/05/17 20:00 06/04/17 19:59 05/05/17 20:00 90 MG Heparin Sodium (Porcine) (Heparin Sq 5000 Unit/0.5ml) 5,000 unit Q8 SQ 05/05/17 09:00 06/04/17 08:59 05/05/17 13:54 5,000 UNIT Lorazepam (Ativan Inj) 1 mg Q6H PRN IV 05/05/17 05:00 06/04/17 04:59 Ipratropium [place] (Atrovent 0.02% 0.5MG/2.5ML Neb) 0.5 mg Q6R INH 05/05/17 09:00 06/04/17 08:59 05/05/17 19:42 0.5 MG Levalbuterol (Xopenex 1.25MG/ 0.5ML Neb) 1.25 mg Q6R INH 05/05/17 09:00 06/04/17 08:59 05/05/17 19:42 1.25 MG Lab Results: 05/05/17 05:57 Red Blood Count 5.52, Mean Corpuscular Volume 86.8, Mean Corpuscular Hemoglobin 29.0, Mean Corpuscular Hemoglobin Concent 33.4, Mean Platelet Volume 10.5, Neutrophils (%) (Auto) 83.1, Lymphocytes (%) (Auto) 13.0, Monocytes (%) (Auto) 3.3, Eosinophils (%) (Auto) 0.2, Basophils (%) (Auto) 0.1, Neutrophils # (Auto) 12.85, Lymphocytes # (Auto) 2.01, Monocytes # (Auto) 0.51, Eosinophils # (Auto) 0.03, Basophils # (Auto) 0.02 05/05/17 05:57 Test 05/05/17 02:03 05/05/17 02:05 05/05/17 03:26 05/05/17 05:57 Prothrombin Time 10.5 SECONDS (9.0-12.0) Prothromb Time International Ratio 1.0 (0.9-1.1) Activated Partial Thromboplast Time 28.0 SECONDS (21.0-31.0) Partial Thromboplastin Ratio 1.1 Direct Bilirubin < 0.1 mg/dl (0-0.2) Total Creatine Kinase 85 U/L (26-192) Creatine Kinase MB 1.7 ng/ml (0.5-3.6) Creatine Kinase MB Ratio 2.0 (0-3.0) Pro-B-Type Natriuretic Peptide 108 pg/ml (0-900) Bedside Troponin I 0.480 ng/ml (0-0.045) Kaolin Activated Coagulation Time 230 SECONDS (94-140) White Blood Count 14.94 K/uL (4.8-10.8) Red Blood Count 5.52 M/uL (4.2-5.4) Hemoglobin 16.0 g/dL (12.0-16.0) Hematocrit 47.9 % (37-47) Mean Corpuscular Volume 86.8 fL (80-100) Mean Corpuscular Hemoglobin 29.0 pg (25-34) Mean Corpuscular Hemoglobin Concent 33.4 g/dl (32-36) Platelet Count 339 K/uL (130-400) Mean Platelet Volume 10.5 fL (7.4-10.4) Neutrophils (%) (Auto) 83.1 % Lymphocytes (%) (Auto) 13.0 % Monocytes (%) (Auto) 3.3 % Eosinophils (%) (Auto) 0.2 % Basophils (%) (Auto) 0.1 % Neutrophils # (Auto) 12.85 K/uL (1.4-6.5) Lymphocytes # (Auto) 2.01 K/uL (1.2-3.4) Monocytes # (Auto) 0.51 K/uL (0.11-0.59) Eosinophils # (Auto) 0.03 K/uL (0-0.5) Basophils # (Auto) 0.02 K/uL (0-0.2) RDW Standard Deviation 45.8 fL (36.4-46.3) RDW Coefficient of Variation 14.3 % (11.5-14.5) Immature Granulocyte % (Auto) 0.3 % Immature Granulocyte # (Auto) 0.04 K/uL (0.00-0.02) Nucleated RBC Absolute Count (auto) 0.00 K/uL (0-0) Nucleated Red Blood Cells % 0.0 % Anion Gap 10.0 mmol/L (3-11) Est Creatinine Clear Calc Drug Dose 83.9 ml/min Estimated GFR () 91.4 Estimated GFR (Non- 78.9 BUN/Creatinine Ratio 14.6 (10-20) Calcium Level 9.9 mg/dl (8.5-10.1) Phosphorus Level 3.1 mg/dl (2.5-4.9) Magnesium Level 2.0 mg/dl (1.8-2.4) Total Bilirubin 0.5 mg/dl (0.2-1) Aspartate Amino Transf (AST/SGOT) 35 U/L (15-37) Alanine Aminotransferase (ALT/SGPT) 25 U/L (12-78) Alkaline Phosphatase 82 U/L (45-117) Total Protein 8.5 gm/dl (6.4-8.2) Albumin 3.7 gm/dl (3.4-5.0) Globulin 4.8 gm/dl (2.5-4.0) Albumin/Globulin Ratio 0.8 (0.9-2) Triglycerides Level 83 mg/dl (0-150) Cholesterol Level 246 mg/dl (0-200) HDL Cholesterol 57 mg/dl LDL Cholesterol, Calculated 172 mg/dl VLDL Cholesterol, Calculated 17 mg/dl Cholesterol/HDL Ratio 4.3 Procalcitonin < 0.05 ng/ml (0-0.5) Hepatitis C Antibody Screen NEG (NEG) Test 05/05/17 06:39 05/05/17 15:08 Lactic Acid Level 2.6 mmol/L (0.4-2.0) Troponin I 22.500 ng/ml (0-0.045) Date/Time Source Procedure Growth Status 05/05/17 08:00 Nasal MRSA DNA Surveillance Screen - Final Specimen Negative for MRSA by DNA Probe Complete
[2017-05-06] VITALS (48 sets, daily range): BP systolic 93–148; BP diastolic 51–95; PULSE 59–139; TEMP 36.4–36.7; O2SAT 90–98
[2017-05-06] MEDS: IPRATROPIUM BROMIDE NEB SOLN 0.02% 2.5 ML VIAL INH SCH ×2 (01:50→07:10)
[2017-05-06] MEDS: LEVALBUTEROL 1.25MG/0.5ML NEB INH SCH ×2 (01:50→07:10)
[2017-05-06] MEDS: HEPARIN SOD 5000 UNIT/0.5 ML CARP SQ SCH ×2 (06:14→13:07)
[2017-05-06 06:50] LABS: BASO % 0.3 %; BASO ABS # 0.03 K/uL (0-0.2); EOS % 0.3 %; EOS ABS # 0.03 K/uL (0-0.5); HEMATOCRIT 39.4 % (37-47); HEMOGLOBIN 13.1 g/dL (12.0-16.0); IG# 0.02 K/uL (0.00-0.02); LYMPH % 15.9 %; LYMPH ABS # 1.86 K/uL (1.2-3.4); MEAN CELL VOLUME 86.4 fL (80-100); MEAN CORPUSCULAR HEMOGLOBIN 28.7 pg (25-34); MEAN CORPUSCULAR HGB CONC 33.2 g/dl (32-36); MONO % 7.1 %; MONO ABS # 0.83 K/uL (0.11-0.59); NEUT % 76.2 %; NEUT ABS # 8.96 K/uL (1.4-6.5); PLATELET COUNT 231 K/uL (130-400); RED CELL DISTRIBUTION WIDTH CV 14.9 % (11.5-14.5); RED CELL DISTRIBUTION WIDTH SD 47.1 fL (36.4-46.3); WHITE BLOOD COUNT 11.73 K/uL (4.8-10.8)
[2017-05-06 06:51] LABS: ALBUMIN 3.1 gm/dl (3.4-5.0); ALKALINE PHOSPHATASE 60 U/L (45-117); ALT/SGPT 36 U/L (12-78); AST/SGOT 141 U/L (15-37); BLOOD UREA NITROGEN 7 mg/dl (7-18); CALCIUM 8.3 mg/dl (8.5-10.1); CARBON DIOXIDE 24 mmol/L (21-32); CREATININE 0.54 mg/dl (0.60-1.20); GLUCOSE 119 mg/dl (70-99); PHOSPHORUS 1.9 mg/dl (2.5-4.9); POTASSIUM 3.6 mmol/L (3.5-5.1); SODIUM 141 mmol/L (136-145)
[2017-05-06 08:06] LABS: HEMOGLOBIN A1C 5.9 % (4.5-5.6)
--- NOTE | 2017-05-06 08:16 | Progress Note ---
Subjective Date of Service: May 06, 2017. Problem List Medical Problems: (1) ST elevation myocardial infarction (STEMI) of anterior wall Status: Acute Objective Vital Signs Date Time Temp Pulse Resp B/P (MAP) Pulse Ox O2 Delivery O2 Flow Rate FiO2 05/06/17 07:10 84 20 95 Nasal Cannula 2.0 05/06/17 06:01 91 16 140/73 (95) 93 05/06/17 06:00 92 16 93 05/06/17 05:01 73 18 136/75 (95) 98 05/06/17 05:00 98 21 95 05/06/17 04:22 36.7 05/06/17 04:07 94 Room Air 2.0 05/06/17 04:00 91 19 95 05/06/17 03:46 94 20 132/85 (101) 98 05/06/17 03:31 84 19 148/85 (106) 96 05/06/17 03:16 93 18 136/83 (100) 94 05/06/17 03:01 98 21 138/95 (109) 93 05/06/17 03:00 99 15 93 05/06/17 02:01 96 19 136/86 (103) 96 05/06/17 02:00 89 20 95 05/06/17 01:50 104 16 94 Nasal Cannula 2.0 05/06/17 01:46 87 19 125/66 (85) 93 05/06/17 01:31 88 19 127/74 (91) 94 05/06/17 01:16 91 19 132/75 (94) 95 05/06/17 01:01 91 18 136/69 (91) 93 05/06/17 01:00 87 23 94 05/06/17 00:16 87 20 128/72 (90) 95 05/06/17 00:01 95 21 145/81 (102) 95 05/06/17 00:00 87 19 95 05/06/17 00:00 94 Room Air 2.0 05/05/17 23:46 88 20 139/75 (96) 93 05/05/17 23:31 89 23 138/74 (95) 96 05/05/17 23:16 90 21 143/82 (102) 95 05/05/17 23:01 83 23 125/74 (91) 96 05/05/17 23:00 86 19 96 2/18/18 22:46 86 20 137/76 (96) 96 1818 22:31 90 15 123/89 (100) 96 18 22:16 94 20 123/83 (96) 18 22:04 102 23 86/71 (76) 94 18 21:01 89 18 145/73 (97) 97 18 21:00 91 21 96 18 20:46 90 18 154/80 (104) 96 18 20:31 101 17 141/87 (105) 93 18 20:16 97 18 146/81 (102) 93 05/05/17 20:01 37.5 99 16 150/81 (104) 94 05/05/17 20:00 97 12 94 05/05/17 20:00 94 Room Air 2.0 05/05/17 19:46 88 19 153/80 (104) 98 18 19:42 87 16 93 Room Air 05/05/17 19:31 90 22 149/77 (101) 92 18 19:16 93 21 151/91 (111) 99 05/05/17 19:00 89 15 97 18 18:00 83 20 97 Nasal Cannula 2.0 05/05/17 16:00 36.5 90 20 122/69 (86) 94 Nasal Cannula 2.0 05/05/17 16:00 94 2.0 05/05/17 14:47 74 20 95 Nasal Cannula 2.0 05/05/17 12:00 96 2.0 05/05/17 12:00 36.6 85 18 114/84 (94) 96 Nasal Cannula 2.0 05/05/17 10:00 102 20 141/75 (97) 96 Nasal Cannula 2.0 Laboratory Results Last 24 Hours Test 05/05/17 12:29 05/05/17 15:08 05/05/17 22:07 05/06/17 05:38 Troponin I 17.600 ng/ml 22.500 ng/ml 22.700 ng/ml White Blood Count 11.73 K/uL Red Blood Count 4.56 M/uL Hemoglobin 13.1 g/dL Hematocrit 39.4 % Mean Corpuscular Volume 86.4 fL Mean Corpuscular Hemoglobin 28.7 pg Mean Corpuscular Hemoglobin Concent 33.2 g/dl Platelet Count 231 K/uL Mean Platelet Volume 10.0 fL Neutrophils (%) (Auto) 76.2 % Lymphocytes (%) (Auto) 15.9 % Monocytes (%) (Auto) 7.1 % Eosinophils (%) (Auto) 0.3 % Basophils (%) (Auto) 0.3 % Neutrophils # (Auto) 8.96 K/uL Lymphocytes # (Auto) 1.86 K/uL Monocytes # (Auto) 0.83 K/uL Eosinophils # (Auto) 0.03 K/uL Basophils # (Auto) 0.03 K/uL RDW Standard Deviation 47.1 fL RDW Coefficient of Variation 14.9 % Immature Granulocyte % (Auto) 0.2 % Immature Granulocyte # (Auto) 0.02 K/uL Sodium Level 141 mmol/L Potassium Level 3.6 mmol/L Chloride Level 109 mmol/L Carbon Dioxide Level 24 mmol/L Anion Gap 8.0 mmol/L Blood Urea Nitrogen 7 mg/dl Creatinine 0.54 mg/dl Est Creatinine Clear Calc Drug Dose 126.9 ml/min Estimated GFR () 120.6 Estimated GFR (Non- 104.0 BUN/Creatinine Ratio 12.7 Random Glucose 119 mg/dl Calcium Level 8.3 mg/dl Phosphorus Level 1.9 mg/dl Magnesium Level 2.2 mg/dl Total Bilirubin 0.5 mg/dl Direct Bilirubin < 0.1 mg/dl Aspartate Amino Transf (AST/SGOT) 141 U/L Alanine Aminotransferase (ALT/SGPT) 36 U/L Alkaline Phosphatase 60 U/L Total Protein 7.0 gm/dl Albumin 3.1 gm/dl Assessment and Plan 56 F presented as acute heart alert for stemi, sustained 3 stents in LAD and tributaries, does have depressed EF on echo to 40-45%, did have emesis and aspiration at end of procedure with cxr consistent with chemical pneumonitis CAD, STemi, on asa, Brilinta, metoprolol tartarate 12.5 bid, lisinopril, and atorvo 80 mg Chemical pneumonitis, off antibiotics at this time, needing mild oxygen support heparin for DVT prevention
[2017-05-06] MEDS: POT PHOSPHATE MONOBASIC W/ SOD TAB PO SCH ×4 (09:13→20:31)
[2017-05-06] MEDS: IPRATROPIUM BROMIDE/ALBUTEROL respimat INH INH SCH ×4 (09:13→20:29)
[2017-05-06] MEDS: AMOXICILLIN/CLAVULANATE TAB 875 MG TAB PO SCH ×2 (09:13→16:53)
[2017-05-06] MEDS: ATORVASTATIN 40 MG TAB PO SCH (09:14)
[2017-05-06] MEDS: LISINOPRIL 5 MG TAB PO SCH (09:14)
[2017-05-06] MEDS: TICAGRELOR 90 MG TAB PO SCH ×2 (09:14→20:31)
[2017-05-06] MEDS: ASPIRIN 81 MG ECTAB PO SCH (09:14)
[2017-05-06] MEDS: METOPROLOL TARTRATE 25 MG TAB PO SCH ×2 (09:14→20:31)
[2017-05-06] MEDS: PANTOprazole SOD 40 MG TAB PO SCH (09:14)
[2017-05-06] MEDS: ACETAMINOPHEN 325 MG TAB PO PRN (09:16)
--- NOTE | 2017-05-06 14:07 | Cardiology Follow-Up ---
Subjective Subjective Date of Service: May 06, 2017. Pt evaluation today including: conversation w/ patient, conversation w/ family , physical exam (The), chart review, lab review, review of studies, review of inpatient medication list Additional Details: Up walking halls earlier today. Denies any recurrent chest pain. Currently fatigue. No significant shortness of breath Telemetry reviewed--brief episodes paroxysmal supraventricular tachycardia to 120s. Problem List Medical Problems: (1) ST elevation myocardial infarction (STEMI) of anterior wall Status: Acute Review of Systems Constitutional: No fever ENT: + hearing loss Cardiac: + chest pain Abdomen: No pain Female : No dysuria Heme: No abnormal bleeding/bruising Endo: + fatigue Skin: No rash Objective Vital Signs Last Vital Signs Documentation Date Time Temp Pulse Resp B/P (MAP) Pulse Ox O2 Delivery O2 Flow Rate FiO2 05/06/17 13:01 96 28 127/70 (89) 95 Room Air 05/06/17 12:32 36.4 05/06/17 07:10 2.0 Physical Exam: General Appearance: no apparent distress, + pertinent finding (uncomfortable, weak) ENT: hearing grossly normal Neck: no JVD Respiratory/Chest: lungs clear, + crackles (Scant crackles at right base, improved from prior) Cardiovascular: regular rate, rhythm, no murmur Abdomen: normal bowel sounds, non tender, soft Extremities: no pedal edema, no calf tenderness, + pertinent finding (right radial artery access site - no hematoma/ecchymosis; diminished distal pulse) Neurologic/Psychiatric: sheriff officer II-XII nml as tested, normal mood/affect, oriented x 3 Skin: no rash Assessment and Plan 1. Anterior STEMI s/p PPCI with 3 ORLIN (2 to LAD, 1 to Diagonal) 2. LV dysfunction, LVEF 40-45% 3. Aspiration pneumonitis/Asthma -- on bronchodilators/PO antibiotics per ICU team 4. Hypertension 5. Dyslipidemia 6. Paroxysmal SVT Chest pain, hypoxia improved. Troponin peaked. Brief episodes of self-terminating symptomatic SVT (chronic issue) -- Continue DAPT with ASA/Tigcarelor -- Increase beta-randy to home dose 50mg BID -- continue current lisinopril -- Continue statin -- OK for transfer to telemetry today. Medications: Current Inpatient Medications Medications (Trade) Dose Ordered Sig/Fabiola Route Start Time Stop Time Status Last Admin Dose Admin Aspirin (Ecotrin Tab) 81 mg QAM PO 05/05/17 09:00 06/04/17 08:59 05/06/17 09:14 81 MG Al Hydrox/Mg Hydrox/Simethicone (Maalox Max Susp) 15 ml Q4H PRN PO 05/05/17 04:45 06/04/17 04:44 Magnesium Hydroxide (Milk Of Magnesia Susp) 30 ml Q12H PRN PO 05/05/17 04:45 06/04/17 04:44 Ondansetron HCl (Zofran Inj) 4 mg Q6H PRN IV 05/05/17 04:45 06/04/17 04:44 Pantoprazole Sodium (Protonix Tab) 40 mg DAILY PO 05/05/17 09:00 05/08/17 09:01 05/06/17 09:14 40 MG Morphine Sulfate (MoRPHine SULFATE INJ) 2 mg Q2H PRN IV 05/05/17 04:45 05/19/17 04:44 Morphine Sulfate (MoRPHine SULFATE INJ) 4 mg Q2H PRN IV 05/05/17 04:45 05/19/17 04:44 Miscellaneous Information (Icu Protocol For Hyperglycemia) 1 ea PRN PRN N/A 05/05/17 04:45 05/07/17 04:44 Nitroglycerin (Nitrostat Tab) 0.4 mg UD PRN SL 05/05/17 04:45 06/04/17 04:44 Atorvastatin Calcium (Lipitor Tab) 80 mg QAM PO 05/05/17 09:00 06/04/17 08:59 05/06/17 09:14 80 MG Metoprolol Tartrate (Lopressor Tab) 25 mg Q12 PO 05/05/17 09:00 06/04/17 08:59 05/06/17 09:14 25 MG Lisinopril (Zestril Tab) 5 mg QAM PO 05/05/17 09:00 06/04/17 08:59 05/06/17 09:14 5 MG Acetaminophen (Tylenol Tab) 650 mg Q4H PRN PO 05/05/17 04:45 06/04/17 04:44 05/06/17 09:16 650 MG Ticagrelor (Brilinta Tab) 90 mg BID PO 05/05/17 20:00 06/04/17 19:59 05/06/17 09:14 90 MG Heparin Sodium (Porcine) (Heparin Sq 5000 Unit/0.5ml) 5,000 unit Q8 SQ 05/05/17 09:00 06/04/17 08:59 05/06/17 13:07 5,000 UNIT Lorazepam (Ativan Inj) 1 mg Q6H PRN IV 05/05/17 05:00 06/04/17 04:59 Amoxicillin/ Clavulanate Potassium (Augmentin Tab) 875 mg BIDM PO 05/06/17 11:30 05/13/17 07:14 05/06/17 09:13 875 MG Albuterol/ Ipratropium (Combivent Respimat Inh) 1 puffs QID INH 05/06/17 09:00 06/05/17 08:59 05/06/17 13:06 1 PUFFS Potassium/ Phosphorus/Sodium (Phospha 250 Neutral 155-852-130 Mg) 1 tab QID PO 05/06/17 09:00 06/05/17 08:59 05/06/17 13:06 1 TAB Lab Results: 05/06/17 05:38 Red Blood Count 4.56, Mean Corpuscular Volume 86.4, Mean Corpuscular Hemoglobin 28.7, Mean Corpuscular Hemoglobin Concent 33.2, Mean Platelet Volume 10.0, Neutrophils (%) (Auto) 76.2, Lymphocytes (%) (Auto) 15.9, Monocytes (%) (Auto) 7.1, Eosinophils (%) (Auto) 0.3, Basophils (%) (Auto) 0.3, Neutrophils # (Auto) 8.96, Lymphocytes # (Auto) 1.86, Monocytes # (Auto) 0.83, Eosinophils # (Auto) 0.03, Basophils # (Auto) 0.03 05/06/17 05:38 Test 05/05/17 22:07 05/06/17 05:38 Troponin I 22.700 ng/ml (0-0.045) White Blood Count 11.73 K/uL (4.8-10.8) Red Blood Count 4.56 M/uL (4.2-5.4) Hemoglobin 13.1 g/dL (12.0-16.0) Hematocrit 39.4 % (37-47) Mean Corpuscular Volume 86.4 fL (80-100) Mean Corpuscular Hemoglobin 28.7 pg (25-34) Mean Corpuscular Hemoglobin Concent 33.2 g/dl (32-36) Platelet Count 231 K/uL (130-400) Mean Platelet Volume 10.0 fL (7.4-10.4) Neutrophils (%) (Auto) 76.2 % Lymphocytes (%) (Auto) 15.9 % Monocytes (%) (Auto) 7.1 % Eosinophils (%) (Auto) 0.3 % Basophils (%) (Auto) 0.3 % Neutrophils # (Auto) 8.96 K/uL (1.4-6.5) Lymphocytes # (Auto) 1.86 K/uL (1.2-3.4) Monocytes # (Auto) 0.83 K/uL (0.11-0.59) Eosinophils # (Auto) 0.03 K/uL (0-0.5) Basophils # (Auto) 0.03 K/uL (0-0.2) RDW Standard Deviation 47.1 fL (36.4-46.3) RDW Coefficient of Variation 14.9 % (11.5-14.5) Immature Granulocyte % (Auto) 0.2 % Immature Granulocyte # (Auto) 0.02 K/uL (0.00-0.02) Anion Gap 8.0 mmol/L (3-11) Est Creatinine Clear Calc Drug Dose 126.9 ml/min Estimated GFR () 120.6 Estimated GFR (Non- 104.0 BUN/Creatinine Ratio 12.7 (10-20) Calcium Level 8.3 mg/dl (8.5-10.1) Phosphorus Level 1.9 mg/dl (2.5-4.9) Magnesium Level 2.2 mg/dl (1.8-2.4) Total Bilirubin 0.5 mg/dl (0.2-1) Direct Bilirubin < 0.1 mg/dl (0-0.2) Aspartate Amino Transf (AST/SGOT) 141 U/L (15-37) Alanine Aminotransferase (ALT/SGPT) 36 U/L (12-78) Alkaline Phosphatase 60 U/L (45-117) Total Protein 7.0 gm/dl (6.4-8.2) Albumin 3.1 gm/dl (3.4-5.0)
[2017-05-06] MEDS ORDERED: METOPROLOL TARTRATE 1 MG/ML VIAL ONE ×2 (14:09→15:06)
[2017-05-06] MEDS ORDERED: NURSING VERBAL MED ORDER ONE ×2 (14:30)
[2017-05-06] MEDS ORDERED: ADENOSINE IV SOLN 3 MG/ML 2 ML VIAL ONE (14:54)
[2017-05-06] MEDS ORDERED: METOPROLOL TARTRATE 50 MG TAB PO ONE (15:00)
[2017-05-06] MEDS ORDERED: AMIODARONE 360MG / 200ML D5W ONE (15:13)
[2017-05-06] MEDS ORDERED: AMIODARONE 150MG / 100ML D5W ONE (15:14)
[2017-05-06] MEDS ORDERED: AMIODARONE IV BOLUS / DRIP IV STA (15:25)
--- NOTE | 2017-05-06 15:28 | Progress Note ---
Subjective Date of Service: May 06, 2017. Subjective this pt is doing well no pain at left heart cath site, coughing has improved but she does have some minor pleuritic pain on left side of chest(Dresslers?) Problem List Medical Problems: (1) ST elevation myocardial infarction (STEMI) of anterior wall Status: Acute Review of Systems Constitutional: No fever, No chills Respiratory: + cough, No shortness of breath, No dyspnea on exertion Cardiac: No chest pain, No PND, No edema Abdomen: No pain, No nausea, No vomiting, No diarrhea Musculoskeletal: No joint pain, No muscle pain Psychiatric: No depression symptoms, No anhedonism, No anxiety Objective Vital Signs Date Time Temp Pulse Resp B/P (MAP) Pulse Ox O2 Delivery O2 Flow Rate FiO2 05/06/17 14:09 156 95/68 05/06/17 13:01 96 28 127/70 (89) 95 Room Air 05/06/17 12:32 36.4 81 19 106/69 (81) 05/06/17 12:00 Room Air 05/06/17 10:01 82 18 128/55 (79) 94 Room Air 05/06/17 09:01 96 18 121/66 (84) 91 Room Air 05/06/17 08:01 36.4 97 22 117/62 (80) 93 Room Air 05/06/17 08:00 Room Air 05/06/17 08:00 Room Air 05/06/17 07:33 97 24 113/71 (85) 05/06/17 07:10 84 20 95 Nasal Cannula 2.0 05/06/17 06:01 91 16 140/73 (95) 93 05/06/17 06:00 92 16 93 05/06/17 05:01 73 18 136/75 (95) 98 05/06/17 05:00 98 21 95 05/06/17 04:22 36.7 05/06/17 04:07 94 Room Air 2.0 05/06/17 04:00 91 19 95 05/06/17 03:46 94 20 132/85 (101) 98 05/06/17 03:31 84 19 148/85 (106) 96 05/06/17 03:16 93 18 136/83 (100) 94 05/06/17 03:01 98 21 138/95 (109) 93 2/19/18 03:00 99 15 93 05/06/18 02:01 96 19 136/86 (103) 96 2/18 02:00 89 20 95 2/18 01:50 104 16 94 Nasal Cannula 2.0 18 01:46 87 19 125/66 (85) 93 2/18 01:31 88 19 127/74 (91) 94 05/06/18 01:16 91 19 132/75 (94) 95 05/06/18 01:01 91 18 136/69 (91) 93 05/06/18 01:00 87 23 94 05/06/18 00:16 87 20 128/72 (90) 95 05/06/18 00:01 95 21 145/81 (102) 95 05/06/18 00:00 87 19 95 05/06/18 00:00 94 Room Air 2.0 05/05/17 23:46 88 20 139/75 (96) 93 18/18 23:31 89 23 138/74 (95) 96 18/18 23:16 90 21 143/82 (102) 95 218/18 23:01 83 23 125/74 (91) 96 2/18 23:00 86 19 96 218/18 22:46 86 20 137/76 (96) 96 218/18 22:31 90 15 123/89 (100) 96 218/18 22:16 94 20 123/83 (96) 218/18 22:04 102 23 86/71 (76) 94 18/18 21:01 89 18 145/73 (97) 97 218/18 21:00 91 21 96 218/18 20:46 90 18 154/80 (104) 96 218/18 20:31 101 17 141/87 (105) 93 218/18 20:16 97 18 146/81 (102) 93 218/18 20:01 37.5 99 16 150/81 (104) 94 218/18 20:00 97 12 94 2/18/18 20:00 94 Room Air 2.0 18/18 19:46 88 19 153/80 (104) 98 218/18 19:42 87 16 93 Room Air 18/18 19:31 90 22 149/77 (101) 92 2/18/18 19:16 93 21 151/91 (111) 99 05/05/17 19:00 89 15 97 05/05/17 18:00 83 20 97 Nasal Cannula 2.0 05/05/17 16:00 36.5 90 20 122/69 (86) 94 Nasal Cannula 2.0 05/05/17 16:00 94 2.0 Physical Exam General Appearance: WD/WN, + mild distress Respiratory/Chest: chest non-tender, lungs clear, normal breath sounds Cardiovascular: regular rate, rhythm, no murmur Abdomen: normal bowel sounds, non tender, soft Extremities: no pedal edema, no calf tenderness Neurologic/Psychiatric: alert, oriented x 3 Laboratory Results Last 24 Hours Test 05/05/17 22:07 05/06/17 05:38 Troponin I 22.700 ng/ml White Blood Count 11.73 K/uL Red Blood Count 4.56 M/uL Hemoglobin 13.1 g/dL Hematocrit 39.4 % Mean Corpuscular Volume 86.4 fL Mean Corpuscular Hemoglobin 28.7 pg Mean Corpuscular Hemoglobin Concent 33.2 g/dl Platelet Count 231 K/uL Mean Platelet Volume 10.0 fL Neutrophils (%) (Auto) 76.2 % Lymphocytes (%) (Auto) 15.9 % Monocytes (%) (Auto) 7.1 % Eosinophils (%) (Auto) 0.3 % Basophils (%) (Auto) 0.3 % Neutrophils # (Auto) 8.96 K/uL Lymphocytes # (Auto) 1.86 K/uL Monocytes # (Auto) 0.83 K/uL Eosinophils # (Auto) 0.03 K/uL Basophils # (Auto) 0.03 K/uL RDW Standard Deviation 47.1 fL RDW Coefficient of Variation 14.9 % Immature Granulocyte % (Auto) 0.2 % Immature Granulocyte # (Auto) 0.02 K/uL Sodium Level 141 mmol/L Potassium Level 3.6 mmol/L Chloride Level 109 mmol/L Carbon Dioxide Level 24 mmol/L Anion Gap 8.0 mmol/L Blood Urea Nitrogen 7 mg/dl Creatinine 0.54 mg/dl Est Creatinine Clear Calc Drug Dose 126.9 ml/min Estimated GFR () 120.6 Estimated GFR (Non- 104.0 BUN/Creatinine Ratio 12.7 Random Glucose 119 mg/dl Calcium Level 8.3 mg/dl Phosphorus Level 1.9 mg/dl Magnesium Level 2.2 mg/dl Total Bilirubin 0.5 mg/dl Direct Bilirubin < 0.1 mg/dl Aspartate Amino Transf (AST/SGOT) 141 U/L Alanine Aminotransferase (ALT/SGPT) 36 U/L Alkaline Phosphatase 60 U/L Total Protein 7.0 gm/dl Albumin 3.1 gm/dl Assessment and Plan 56 F presented as acute heart alert for stemi, sustained 3 stents in LAD and tributaries, does have depressed EF on echo to 40-45%, did have emesis and aspiration at end of procedure with cxr consistent with chemical pneumonitis CAD, STemi, on asa, Brilinta, metoprolol tartarate bid, lisinopril, and atorvo 80 mg New onset afib RVR, pt will have amiodarone gtt and started on eliquis, will stay in ICU for monitoring Chemical pneumonitis, now placed on augmentin bid and titrating mild oxygen support Eliquis for DVT prevention
[2017-05-06] MEDS ORDERED: AMIODARONE / D5W 100 ML IV ONE (15:45)
[2017-05-06] MEDS ORDERED: AMIODARONE / D5W 200 ML IV SCH (16:00)
--- NOTE | 2017-05-06 16:34 | Critical Care Progress Note ---
Critical Care Progress Note Date of Service May 06, 2017. Attending Dr. Guan Subjective The patient has uneventful night, no more chest pain and no heaviness in her chest. However as the day of fold, the patient went into new onset A. fib with RVR responded to low dose of Lopressor. The patient was seen by Dr. Jackson earlier and was started also on amiodarone for rate control. The patient also started on anti-evaluation for new onset A. fib post [place]. Objective Status post PCI for ST elevation [place], with ORLIN, compensated by aspiration pneumonitis. 05/06/2017 exam revealed vital signs are stable except for the past 3 hours when the patient went into rapid A. fib. Rate of 130, no JVD, distant and clear breath sounds, no wheezing, crackles mainly at the right base, no edema. I have reviewed her chest x-ray which showed extensive infiltrate mainly the right lower and right middle lobe. Assessment & Plan #1 ST elevation [place] status post PCI with stenting. #2 right lower lobe infiltrate secondary to aspiration pneumonitis. #3 new onset A. fib, RVR. Plan: #1 I would add Augmentin 875 me gram by mouth twice a day. #[address] Jackson input. #3 amiodarone started. #4 anticoagulation with Eliquis. #5 continue current medications including antiplatelets therapy, beta blockers, aspirin. Discussed with the staff on rounds and details. EKG reviewed personally. CCT 35 minutes. Data Medications: Current Inpatient Medications Medications (Trade) Dose Ordered Sig/Fabiola Route Start Time Stop Time Status Last Admin Dose Admin Aspirin (Ecotrin Tab) 81 mg QAM PO 05/05/17 09:00 06/04/17 08:59 05/06/17 09:14 81 MG Al Hydrox/Mg Hydrox/Simethicone (Maalox Max Susp) 15 ml Q4H PRN PO 05/05/17 04:45 06/04/17 04:44 Magnesium Hydroxide (Milk Of Magnesia Susp) 30 ml Q12H PRN PO 05/05/17 04:45 06/04/17 04:44 Ondansetron HCl (Zofran Inj) 4 mg Q6H PRN IV 05/05/17 04:45 06/04/17 04:44 Pantoprazole Sodium (Protonix Tab) 40 mg DAILY PO 05/05/17 09:00 05/08/17 09:01 05/06/17 09:14 40 MG Morphine Sulfate (MoRPHine SULFATE INJ) 2 mg Q2H PRN IV 05/05/17 04:45 05/19/17 04:44 Morphine Sulfate (MoRPHine SULFATE INJ) 4 mg Q2H PRN IV 05/05/17 04:45 05/19/17 04:44 Miscellaneous Information ([facility] Protocol For Hyperglycemia) 1 ea PRN PRN N/A 05/05/17 04:45 05/07/17 04:44 Nitroglycerin (Nitrostat Tab) 0.4 mg UD PRN SL 05/05/17 04:45 06/04/17 04:44 Atorvastatin Calcium (Lipitor Tab) 80 mg QAM PO 05/05/17 09:00 06/04/17 08:59 05/06/17 09:14 80 MG Metoprolol Tartrate (Lopressor Tab) 25 mg Q12 PO 05/05/17 09:00 05/07/17 08:59 05/06/17 09:14 25 MG Lisinopril (Zestril Tab) 5 mg QAM PO 05/05/17 09:00 06/04/17 08:59 05/06/17 09:14 5 MG Acetaminophen (Tylenol Tab) 650 mg Q4H PRN PO 05/05/17 04:45 06/04/17 04:44 05/06/17 09:16 650 MG Ticagrelor (Brilinta Tab) 90 mg BID PO 05/05/17 20:00 06/04/17 19:59 05/06/17 09:14 90 MG Lorazepam (Ativan Inj) 1 mg Q6H PRN IV 05/05/17 05:00 06/04/17 04:59 Amoxicillin/ Clavulanate Potassium (Augmentin Tab) 875 mg BIDM PO 05/06/17 11:30 05/13/17 07:14 05/06/17 09:13 875 MG Albuterol/ Ipratropium (Combivent Respimat Inh) 1 puffs QID INH 05/06/17 09:00 06/05/17 08:59 05/06/17 13:06 1 PUFFS Potassium/ Phosphorus/Sodium (Phospha 250 Neutral 155-852-130 Mg) 1 tab QID PO 05/06/17 09:00 06/05/17 08:59 05/06/17 13:06 1 TAB Apixaban (Eliquis Tab) 5 mg Q12 PO 05/06/17 15:30 06/05/17 15:29 Metoprolol Tartrate (Lopressor Tab) 50 mg Q12 PO 05/07/17 09:00 06/04/17 08:59 Amiodarone HCL/ Dextrose 200 ml @ 33.3 mls/hr Q6H1M IV 05/06/17 16:00 05/06/17 22:00 Amiodarone HCL/ Dextrose 200 ml @ 16.7 mls/hr [id number] IV 05/06/17 22:00 06/05/17 21:59 I & O: 24-Hour Column 05/07/17 07:59 Intake Total 610 ml Output Total 600 ml Balance 10 ml Vital Signs: Date Time Temp Pulse Resp B/P (MAP) Pulse Ox O2 Delivery O2 Flow Rate FiO2 05/06/17 16:00 Room Air 05/06/17 15:23 156 95/68 05/06/17 14:09 156 95/68 05/06/17 13:01 96 28 127/70 (89) 95 Room Air 05/06/17 12:32 36.4 81 19 106/69 (81) 05/06/17 12:00 Room Air 05/06/17 10:01 82 18 128/55 (79) 94 Room Air 05/06/17 09:01 96 18 121/66 (84) 91 Room Air 05/06/17 08:01 36.4 97 22 117/62 (80) 93 Room Air 05/06/17 08:00 Room Air 05/06/17 08:00 Room Air 05/06/17 07:33 97 24 113/71 (85) 05/06/17 07:10 84 20 95 Nasal Cannula 2.0 05/06/17 06:01 91 16 140/73 (95) 93 05/06/17 06:00 92 16 93 05/06/17 05:01 73 18 136/75 (95) 98 05/06/17 05:00 98 21 95 05/06/17 04:22 36.7 05/06/17 04:07 94 Room Air 2.0 05/06/17 04:00 91 19 95 2/19/18 03:46 94 20 132/85 (101) 98 219/18 03:31 84 19 148/85 (106) 96 18 03:16 93 18 136/83 (100) 94 218 03:01 98 21 138/95 (109) 93 218 03:00 99 15 93 218 02:01 96 19 136/86 (103) 96 18 02:00 89 20 95 18 01:50 104 16 94 Nasal Cannula 2.0 18 01:46 87 19 125/66 (85) 93 18 01:31 88 19 127/74 (91) 94 18 01:16 91 19 132/75 (94) 95 18 01:01 91 18 136/69 (91) 93 18 01:00 87 23 94 18 00:16 87 20 128/72 (90) 95 18 00:01 95 21 145/81 (102) 95 18 00:00 87 19 95 218 00:00 94 Room Air 2.0 05/05/17 23:46 88 20 139/75 (96) 93 218/18 23:31 89 23 138/74 (95) 96 18/18 23:16 90 21 143/82 (102) 95 18/18 23:01 83 23 125/74 (91) 96 218/18 23:00 86 19 96 218/18 22:46 86 20 137/76 (96) 96 18/18 22:31 90 15 123/89 (100) 96 218/18 22:16 94 20 123/83 (96) 218/18 22:04 102 23 86/71 (76) 94 218/18 21:01 89 18 145/73 (97) 97 18/18 21:00 91 21 96 218/18 20:46 90 18 154/80 (104) 96 218/18 20:31 101 17 141/87 (105) 93 218/18 20:16 97 18 146/81 (102) 93 218/18 20:01 37.5 99 16 150/81 (104) 94 2/18/18 20:00 97 12 94 05/05/17 20:00 94 Room Air 2.0 05/05/17 19:46 88 19 153/80 (104) 98 05/05/17 19:42 87 16 93 Room Air 05/05/17 19:31 90 22 149/77 (101) 92 05/05/17 19:16 93 21 151/91 (111) 99 05/05/17 19:00 89 15 97 05/05/17 18:00 83 20 97 Nasal Cannula 2.0 Laboratory Results: Last 24 Hours Test 05/05/17 22:07 05/06/17 05:38 Troponin I 22.700 ng/ml White Blood Count 11.73 K/uL Red Blood Count 4.56 M/uL Hemoglobin 13.1 g/dL Hematocrit 39.4 % Mean Corpuscular Volume 86.4 fL Mean Corpuscular Hemoglobin 28.7 pg Mean Corpuscular Hemoglobin Concent 33.2 g/dl Platelet Count 231 K/uL Mean Platelet Volume 10.0 fL Neutrophils (%) (Auto) 76.2 % Lymphocytes (%) (Auto) 15.9 % Monocytes (%) (Auto) 7.1 % Eosinophils (%) (Auto) 0.3 % Basophils (%) (Auto) 0.3 % Neutrophils # (Auto) 8.96 K/uL Lymphocytes # (Auto) 1.86 K/uL Monocytes # (Auto) 0.83 K/uL Eosinophils # (Auto) 0.03 K/uL Basophils # (Auto) 0.03 K/uL RDW Standard Deviation 47.1 fL RDW Coefficient of Variation 14.9 % Immature Granulocyte % (Auto) 0.2 % Immature Granulocyte # (Auto) 0.02 K/uL Sodium Level 141 mmol/L Potassium Level 3.6 mmol/L Chloride Level 109 mmol/L Carbon Dioxide Level 24 mmol/L Anion Gap 8.0 mmol/L Blood Urea Nitrogen 7 mg/dl Creatinine 0.54 mg/dl Est Creatinine Clear Calc Drug Dose 126.9 ml/min Estimated GFR () 120.6 Estimated GFR (Non- 104.0 BUN/Creatinine Ratio 12.7 Random Glucose 119 mg/dl Calcium Level 8.3 mg/dl Phosphorus Level 1.9 mg/dl Magnesium Level 2.2 mg/dl Total Bilirubin 0.5 mg/dl Direct Bilirubin < 0.1 mg/dl Aspartate Amino Transf (AST/SGOT) 141 U/L Alanine Aminotransferase (ALT/SGPT) 36 U/L Alkaline Phosphatase 60 U/L Total Protein 7.0 gm/dl Albumin 3.1 gm/dl
[2017-05-06] MEDS: APIXABAN 2.5 MG TAB PO SCH ×2 (16:53→20:30)
[2017-05-06] MEDS: AMIODARONE / D5W 200 ML IV SCH (22:02)
[2017-05-07] VITALS (12 sets, daily range): BP systolic 100–123; BP diastolic 45–75; PULSE 77–101; TEMP 36.4–37; O2SAT 92–97
[2017-05-07 06:07] LABS: BASO % 0.3 %; BASO ABS # 0.03 K/uL (0-0.2); EOS % 1.1 %; EOS ABS # 0.11 K/uL (0-0.5); HEMATOCRIT 39.4 % (37-47); HEMOGLOBIN 12.8 g/dL (12.0-16.0); IG# 0.02 K/uL (0.00-0.02); LYMPH % 22.3 %; LYMPH ABS # 2.17 K/uL (1.2-3.4); MEAN CELL VOLUME 87.2 fL (80-100); MEAN CORPUSCULAR HEMOGLOBIN 28.3 pg (25-34); MEAN CORPUSCULAR HGB CONC 32.5 g/dl (32-36); MEAN PLATELET VOLUME 10.3 fL (7.4-10.4); MONO ABS # 0.68 K/uL (0.11-0.59); NEUT % 69.1 %; NEUT ABS # 6.71 K/uL (1.4-6.5); PLATELET COUNT 237 K/uL (130-400); RED CELL DISTRIBUTION WIDTH SD 48.1 fL (36.4-46.3); WHITE BLOOD COUNT 9.72 K/uL (4.8-10.8)
[2017-05-07 06:31] LABS: CALCIUM 8.7 mg/dl (8.5-10.1); CREATININE 0.64 mg/dl (0.60-1.20); POTASSIUM 3.6 mmol/L (3.5-5.1)
[2017-05-07 06:38] LABS: PHOSPHORUS 2.4 mg/dl (2.5-4.9); TOTAL PROTEIN 6.7 gm/dl (6.4-8.2)
[2017-05-07] MEDS: APIXABAN 2.5 MG TAB PO SCH ×2 (08:09→21:07)
[2017-05-07] MEDS: AMOXICILLIN/CLAVULANATE TAB 875 MG TAB PO SCH ×2 (08:09→16:34)
[2017-05-07] MEDS: ATORVASTATIN 40 MG TAB PO SCH (08:09)
[2017-05-07] MEDS: TICAGRELOR 90 MG TAB PO SCH ×2 (08:09→21:07)
[2017-05-07] MEDS: ASPIRIN 81 MG ECTAB PO SCH (08:09)
[2017-05-07] MEDS: POT PHOSPHATE MONOBASIC W/ SOD TAB PO SCH ×4 (08:09→21:08)
[2017-05-07] MEDS: PANTOprazole SOD 40 MG TAB PO SCH (08:09)
[2017-05-07] MEDS: IPRATROPIUM BROMIDE/ALBUTEROL respimat INH INH SCH ×4 (08:10→21:07)
[2017-05-07] MEDS: METOPROLOL TARTRATE 50 MG TAB PO SCH ×2 (08:10→21:08)
[2017-05-07] MEDS: LISINOPRIL 5 MG TAB PO SCH (08:10)
--- NOTE | 2017-05-07 08:40 | Cardiology Follow-Up ---
Subjective Subjective Date of Service: May 07, 2017. Pt evaluation today including: conversation w/ patient, physical exam, chart review, lab review, review of studies, review of inpatient medication list Additional Details: Converted to sinus rhythm around 21:00 yesterday. Slept well overnight. No shortness of breath this AM. Mild pleuritic pain last night. Tele reviewed -- no events since 2099. Problem List Medical Problems: (1) ST elevation myocardial infarction (STEMI) of anterior wall Status: Acute Review of Systems Constitutional: No fever, No chills Respiratory: + cough, No shortness of breath, No dyspnea on exertion Cardiac: + chest pain, No PND, No edema Abdomen: No pain, No nausea, No vomiting, No diarrhea Musculoskeletal: No joint pain, No muscle pain Female : No dysuria Psychiatric: No depression symptoms, No anhedonism, No anxiety Heme: No abnormal bleeding/bruising Endo: + fatigue Skin: No rash Objective Vital Signs Last Vital Signs Documentation Date Time Temp Pulse Resp B/P (MAP) Pulse Ox O2 Delivery O2 Flow Rate FiO2 05/07/17 08:01 36.4 101 22 108/68 (81) 95 Room Air 05/06/17 07:10 2.0 Physical Exam: General Appearance: no apparent distress ENT: hearing grossly normal Neck: no JVD Respiratory/Chest: lungs clear, normal breath sounds Cardiovascular: regular rate, rhythm, no murmur Abdomen: normal bowel sounds, non tender, soft Extremities: no pedal edema, no calf tenderness, + pertinent finding (no ecchymosis/hematoma right radial artery access site) Neurologic/Psychiatric: alert, oriented x 3 Skin: no rash Assessment and Plan 1. Anterior STEMI s/p PPCI with 3 ORLIN (2 to LAD, 1 to Diagonal) 2. LV dysfunction, LVEF 40-45% 3. New onset AF/Aflutter 4. Paroxysmal SVT 5. Aspiration pneumonitis/Asthma 6. Hypertension 7. Dyslipidemia Back in sinus rhythm this morning. Minimal residual pleuritic chest pain, likely secondary to aspiration event/ possibly post-mi pericarditis -- Complete 24 hrs of amiodarone --> transition to 200mg daily -- Metoprolol 50mg BID and titrate up as BP allows -- Continue Eliquis -- Continue DAPT with ASA/ticagrelor --> transition to plavix prior to discharge with need for triple therapy -- continue CARLI and statin Ok to transfer to telemetry today. Medications: Current Inpatient Medications Medications (Trade) Dose Ordered Sig/Fabiola Route Start Time Stop Time Status Last Admin Dose Admin Aspirin (Ecotrin Tab) 81 mg QAM PO 05/05/17 09:00 06/04/17 08:59 05/07/17 08:09 81 MG Al Hydrox/Mg Hydrox/Simethicone (Maalox Max Susp) 15 ml Q4H PRN PO 05/05/17 04:45 06/04/17 04:44 Magnesium Hydroxide (Milk Of Magnesia Susp) 30 ml Q12H PRN PO 05/05/17 04:45 06/04/17 04:44 Ondansetron HCl (Zofran Inj) 4 mg Q6H PRN IV 05/05/17 04:45 06/04/17 04:44 Pantoprazole Sodium (Protonix Tab) 40 mg DAILY PO 05/05/17 09:00 05/08/17 09:01 05/07/17 08:09 40 MG Morphine Sulfate (MoRPHine SULFATE INJ) 2 mg Q2H PRN IV 05/05/17 04:45 05/19/17 04:44 Morphine Sulfate (MoRPHine SULFATE INJ) 4 mg Q2H PRN IV 05/05/17 04:45 05/19/17 04:44 Nitroglycerin (Nitrostat Tab) 0.4 mg UD PRN SL 05/05/17 04:45 06/04/17 04:44 Atorvastatin Calcium (Lipitor Tab) 80 mg QAM PO 05/05/17 09:00 06/04/17 08:59 05/07/17 08:09 80 MG Metoprolol Tartrate (Lopressor Tab) 25 mg Q12 PO 05/05/17 09:00 05/07/17 08:59 05/06/17 20:31 25 MG Lisinopril (Zestril Tab) 5 mg QAM PO 05/05/17 09:00 06/04/17 08:59 05/07/17 08:10 5 MG Acetaminophen (Tylenol Tab) 650 mg Q4H PRN PO 05/05/17 04:45 06/04/17 04:44 05/06/17 09:16 650 MG Ticagrelor (Brilinta Tab) 90 mg BID PO 05/05/17 20:00 06/04/17 19:59 05/07/17 08:09 90 MG Lorazepam (Ativan Inj) 1 mg Q6H PRN IV 05/05/17 05:00 06/04/17 04:59 Amoxicillin/ Clavulanate Potassium (Augmentin Tab) 875 mg BIDM PO 05/06/17 11:30 05/13/17 07:14 05/07/17 08:09 875 MG Albuterol/ Ipratropium (Combivent Respimat Inh) 1 puffs QID INH 05/06/17 09:00 06/05/17 08:59 05/07/17 08:10 1 PUFFS Potassium/ Phosphorus/Sodium (Phospha 250 Neutral 155-852-130 Mg) 1 tab QID PO 05/06/17 09:00 06/05/17 08:59 05/07/17 08:09 1 TAB Apixaban (Eliquis Tab) 5 mg Q12 PO 05/06/17 15:30 06/05/17 15:29 05/07/17 08:09 5 MG Metoprolol Tartrate (Lopressor Tab) 50 mg Q12 PO 05/07/17 09:00 06/04/17 08:59 05/07/17 08:10 50 MG Amiodarone HCL/ Dextrose 200 ml @ 16.7 mls/hr [id number] IV 05/06/17 22:00 06/05/17 21:59 05/06/17 22:02 16.7 MLS/HR Lab Results: 05/07/17 05:37 Red Blood Count 4.52, Mean Corpuscular Volume 87.2, Mean Corpuscular Hemoglobin 28.3, Mean Corpuscular Hemoglobin Concent 32.5, Mean Platelet Volume 10.3, Neutrophils (%) (Auto) 69.1, Lymphocytes (%) (Auto) 22.3, Monocytes (%) (Auto) 7.0, Eosinophils (%) (Auto) 1.1, Basophils (%) (Auto) 0.3, Neutrophils # (Auto) 6.71, Lymphocytes # (Auto) 2.17, Monocytes # (Auto) 0.68, Eosinophils # (Auto) 0.11, Basophils # (Auto) 0.03 05/07/17 05:37 Test 05/07/17 05:37 White Blood Count 9.72 K/uL (4.8-10.8) Red Blood Count 4.52 M/uL (4.2-5.4) Hemoglobin 12.8 g/dL (12.0-16.0) Hematocrit 39.4 % (37-47) Mean Corpuscular Volume 87.2 fL (80-100) Mean Corpuscular Hemoglobin 28.3 pg (25-34) Mean Corpuscular Hemoglobin Concent 32.5 g/dl (32-36) Platelet Count 237 K/uL (130-400) Mean Platelet Volume 10.3 fL (7.4-10.4) Neutrophils (%) (Auto) 69.1 % Lymphocytes (%) (Auto) 22.3 % Monocytes (%) (Auto) 7.0 % Eosinophils (%) (Auto) 1.1 % Basophils (%) (Auto) 0.3 % Neutrophils # (Auto) 6.71 K/uL (1.4-6.5) Lymphocytes # (Auto) 2.17 K/uL (1.2-3.4) Monocytes # (Auto) 0.68 K/uL (0.11-0.59) Eosinophils # (Auto) 0.11 K/uL (0-0.5) Basophils # (Auto) 0.03 K/uL (0-0.2) RDW Standard Deviation 48.1 fL (36.4-46.3) RDW Coefficient of Variation 15.0 % (11.5-14.5) Immature Granulocyte % (Auto) 0.2 % Immature Granulocyte # (Auto) 0.02 K/uL (0.00-0.02) Anion Gap 8.0 mmol/L (3-11) Est Creatinine Clear Calc Drug Dose 106.9 ml/min Estimated GFR () 114.0 Estimated GFR (Non- 98.4 BUN/Creatinine Ratio 15.0 (10-20) Calcium Level 8.7 mg/dl (8.5-10.1) Phosphorus Level 2.4 mg/dl (2.5-4.9) Magnesium Level 2.0 mg/dl (1.8-2.4) Total Bilirubin 0.6 mg/dl (0.2-1) Direct Bilirubin 0.1 mg/dl (0-0.2) Aspartate Amino Transf (AST/SGOT) 78 U/L (15-37) Alanine Aminotransferase (ALT/SGPT) 31 U/L (12-78) Alkaline Phosphatase 54 U/L (45-117) Troponin I 10.500 ng/ml (0-0.045) Total Protein 6.7 gm/dl (6.4-8.2) Albumin 3.0 gm/dl (3.4-5.0)
[2017-05-07] MEDS: AMIODARONE / D5W 200 ML IV SCH (08:59)
[2017-05-07] MEDS: AMIODARONE 200 MG TAB PO SCH (09:57)
--- NOTE | 2017-05-07 16:34 | Progress Note ---
Subjective Date of Service: May 07, 2017. Subjective this pt is doing much better, she did regain NSR and overall is feeling better, she has no new concerns and no additional chest pain Problem List Medical Problems: (1) ST elevation myocardial infarction (STEMI) of anterior wall Status: Acute Review of Systems Constitutional: No fever, No chills Respiratory: No cough, No wheezing, No shortness of breath Cardiac: No chest pain, No edema Abdomen: No pain, No nausea, No vomiting, No diarrhea Musculoskeletal: No joint pain, No muscle pain Neurologic: No memory loss, No weakness Objective Vital Signs Date Time Temp Pulse Resp B/P (MAP) Pulse Ox O2 Delivery O2 Flow Rate FiO2 05/07/17 12:00 Room Air 05/07/17 11:16 36.7 84 20 100/62 (75) 96 Room Air 05/07/17 10:41 36.4 87 18 96 05/07/17 10:00 87 18 96 Room Air 05/07/17 09:01 96 20 116/63 (80) 95 Room Air 05/07/17 08:01 36.4 101 22 108/68 (81) 95 Room Air 05/07/17 08:00 Room Air 05/07/17 08:00 Room Air 05/07/17 07:01 87 25 116/75 (89) 94 Room Air 05/07/17 06:00 81 18 94 Room Air 05/07/17 04:00 36.9 81 20 118/62 (80) 93 Room Air 05/07/17 04:00 93 Room Air 05/07/17 02:00 79 18 123/68 (86) 92 Room Air 05/07/17 00:01 36.8 77 18 123/68 (86) 94 Room Air 05/06/17 23:59 94 Room Air 05/06/17 22:00 82 18 124/63 (83) 95 Room Air 05/06/17 20:00 94 Room Air 05/06/17 20:00 36.7 113 24 100/71 (81) 94 Room Air 05/06/17 18:01 107 17 119/94 (102) 92 Room Air 05/06/17 17:01 36.4 111 20 128/57 (80) 94 Room Air 05/06/17 16:52 112 23 98/66 (77) 94 Room Air 05/06/17 16:32 132 19 125/57 (79) 93 Room Air Physical Exam General Appearance: WD/WN, no apparent distress Eyes: normal inspection, sclerae normal Respiratory/Chest: chest non-tender, lungs clear, normal breath sounds Cardiovascular: regular rate, rhythm, no murmur Abdomen: normal bowel sounds, non tender, soft Extremities: no pedal edema, no calf tenderness Neurologic/Psychiatric: alert, oriented x 3 Laboratory Results Last 24 Hours Test 05/07/17 05:37 White Blood Count 9.72 K/uL Red Blood Count 4.52 M/uL Hemoglobin 12.8 g/dL Hematocrit 39.4 % Mean Corpuscular Volume 87.2 fL Mean Corpuscular Hemoglobin 28.3 pg Mean Corpuscular Hemoglobin Concent 32.5 g/dl Platelet Count 237 K/uL Mean Platelet Volume 10.3 fL Neutrophils (%) (Auto) 69.1 % Lymphocytes (%) (Auto) 22.3 % Monocytes (%) (Auto) 7.0 % Eosinophils (%) (Auto) 1.1 % Basophils (%) (Auto) 0.3 % Neutrophils # (Auto) 6.71 K/uL Lymphocytes # (Auto) 2.17 K/uL Monocytes # (Auto) 0.68 K/uL Eosinophils # (Auto) 0.11 K/uL Basophils # (Auto) 0.03 K/uL RDW Standard Deviation 48.1 fL RDW Coefficient of Variation 15.0 % Immature Granulocyte % (Auto) 0.2 % Immature Granulocyte # (Auto) 0.02 K/uL Sodium Level 142 mmol/L Potassium Level 3.6 mmol/L Chloride Level 107 mmol/L Carbon Dioxide Level 27 mmol/L Anion Gap 8.0 mmol/L Blood Urea Nitrogen 10 mg/dl Creatinine 0.64 mg/dl Est Creatinine Clear Calc Drug Dose 106.9 ml/min Estimated GFR () 114.0 Estimated GFR (Non- 98.4 BUN/Creatinine Ratio 15.0 Random Glucose 99 mg/dl Calcium Level 8.7 mg/dl Phosphorus Level 2.4 mg/dl Magnesium Level 2.0 mg/dl Total Bilirubin 0.6 mg/dl Direct Bilirubin 0.1 mg/dl Aspartate Amino Transf (AST/SGOT) 78 U/L Alanine Aminotransferase (ALT/SGPT) 31 U/L Alkaline Phosphatase 54 U/L Troponin I 10.500 ng/ml Total Protein 6.7 gm/dl Albumin 3.0 gm/dl Assessment and Plan 56 F presented as acute heart alert for stemi, sustained 3 stents in LAD and tributaries, does have depressed EF on echo to 40-45%, did have emesis and aspiration at end of procedure with cxr consistent with chemical pneumonitis CAD, STemi, on asa, Brilinta, metoprolol tartarate increased to 50 bid, lisinopril, and atorvo 80 mg New onset afib RVR,now in NSR remains no amiodaonre and on eliquis, will move to tele and encourage ambulation Chemical pneumonitis,doing well on augmentin bid able to titrate oxygen to off Eliquis for DVT prevention
--- NOTE | 2017-05-07 19:30 | Critical Care Progress Note ---
Critical Care Progress Note Date of Service May 07, 2017. Attending Dr. Guan Subjective The patient is asymptomatic overnight, no events occurred, she was in A. fib but rate controlled. Converted to sinus rhythm this morning. Objective Status post PCI for ST elevation [place], with ORLIN, compensated by aspiration pneumonitis. 05/06/2017 exam revealed vital signs are stable except for the past 3 hours when the patient went into rapid A. fib. Rate of 130, no JVD, distant and clear breath sounds, no wheezing, crackles mainly at the right base, no edema. I have reviewed her chest x-ray which showed extensive infiltrate mainly the right lower and right middle lobe. 05/07/2017, physical exam revealed stable vital signs, normal sinus rhythm, rate of 84, respiratory rate 24, also saturation is 97% on room air, minimal crackles mainly at the right base, S1-S2 regular rate and rhythm, abdomen is benign no edema. Assessment & Plan #1 ST elevation [place] status post PCI with stenting. #2 right lower lobe infiltrate secondary to aspiration pneumonitis. #3 new onset A. fib, RVR. Now converted to a normal sinus rhythm. Plan: #1 I would add Augmentin 875 me gram by mouth twice a day for 7 days. #[address] Jackson input. Appreciate input and acceptance of this case to regular floor. #3 amiodarone started. #4 anticoagulation with Eliquis. #5 continue current medications including antiplatelets therapy, beta blockers, aspirin. Discussed with the staff on rounds and details. EKG reviewed personally. CCT 35 minutes. Data Medications: Current Inpatient Medications Medications (Trade) Dose Ordered Sig/Fabiola Route Start Time Stop Time Status Last Admin Dose Admin Aspirin (Ecotrin Tab) 81 mg QAM PO 05/05/17 09:00 06/04/17 08:59 05/07/17 08:09 81 MG Al Hydrox/Mg Hydrox/Simethicone (Maalox Max Susp) 15 ml Q4H PRN PO 05/05/17 04:45 06/04/17 04:44 Magnesium Hydroxide (Milk Of Magnesia Susp) 30 ml Q12H PRN PO 05/05/17 04:45 06/04/17 04:44 Ondansetron HCl (Zofran Inj) 4 mg Q6H PRN IV 05/05/17 04:45 06/04/17 04:44 Pantoprazole Sodium (Protonix Tab) 40 mg DAILY PO 05/05/17 09:00 05/08/17 09:01 05/07/17 08:09 40 MG Morphine Sulfate (MoRPHine SULFATE INJ) 2 mg Q2H PRN IV 05/05/17 04:45 3 04:44 Morphine Sulfate (MoRPHine SULFATE INJ) 4 mg Q2H PRN IV 05/05/17 04:45 05/19/17 04:44 Nitroglycerin (Nitrostat Tab) 0.4 mg UD PRN SL 05/05/17 04:45 06/04/17 04:44 Atorvastatin Calcium (Lipitor Tab) 80 mg QAM PO 05/05/17 09:00 06/04/17 08:59 05/07/17 08:09 80 MG Lisinopril (Zestril Tab) 5 mg QAM PO 05/05/17 09:00 06/04/17 08:59 05/07/17 08:10 5 MG Acetaminophen (Tylenol Tab) 650 mg Q4H PRN PO 05/05/17 04:45 06/04/17 04:44 05/06/17 09:16 650 MG Ticagrelor (Brilinta Tab) 90 mg BID PO 05/05/17 20:00 06/04/17 19:59 05/07/17 08:09 90 MG Lorazepam (Ativan Inj) 1 mg Q6H PRN IV 05/05/17 05:00 06/04/17 04:59 Amoxicillin/ Clavulanate Potassium (Augmentin Tab) 875 mg BIDM PO 05/06/17 11:30 05/13/17 07:14 05/07/17 16:34 875 MG Albuterol/ Ipratropium (Combivent Respimat Inh) 1 puffs QID INH 05/06/17 09:00 06/05/17 08:59 05/07/17 16:34 1 PUFFS Potassium/ Phosphorus/Sodium (Phospha 250 Neutral 155-852-130 Mg) 1 tab QID PO 05/06/17 09:00 06/05/17 08:59 05/07/17 16:35 1 TAB Apixaban (Eliquis Tab) 5 mg Q12 PO 05/06/17 15:30 06/05/17 15:29 05/07/17 08:09 5 MG Metoprolol Tartrate (Lopressor Tab) 50 mg Q12 PO 05/07/17 09:00 06/04/17 08:59 05/07/17 08:10 50 MG Amiodarone HCL/ Dextrose 200 ml @ 16.7 mls/hr [id number] IV 05/06/17 22:00 06/05/17 21:59 05/06/17 22:02 16.7 MLS/HR Amiodarone HCl (Cordarone Tab) 200 mg QAM PO 05/07/17 10:30 06/06/17 10:29 05/07/17 09:57 200 MG I & O: 24-Hour Column 05/08/17 07:59 Intake Total 818 ml Output Total 650 ml Balance 168 ml Vital Signs: Date Time Temp Pulse Resp B/P (MAP) Pulse Ox O2 Delivery O2 Flow Rate FiO2 05/07/17 16:00 96 Room Air 05/07/17 16:00 36.8 83 18 102/45 (64) 96 Room Air 05/07/17 12:00 Room Air 05/07/17 11:16 36.7 84 20 100/62 (75) 96 Room Air 05/07/17 10:41 36.4 87 18 96 05/07/17 10:00 87 18 96 Room Air 05/07/17 09:01 96 20 116/63 (80) 95 Room Air 05/07/17 08:01 36.4 101 22 108/68 (81) 95 Room Air 05/07/17 08:00 Room Air 05/07/17 08:00 Room Air 05/07/17 07:01 87 25 116/75 (89) 94 Room Air 05/07/17 06:00 81 18 94 Room Air 05/07/17 04:00 36.9 81 20 118/62 (80) 93 Room Air 05/07/17 04:00 93 Room Air 05/07/17 02:00 79 18 123/68 (86) 92 Room Air 05/07/17 00:01 36.8 77 18 123/68 (86) 94 Room Air 05/06/17 23:59 94 Room Air 05/06/17 22:00 82 18 124/63 (83) 95 Room Air 05/06/17 20:00 94 Room Air 05/06/17 20:00 36.7 113 24 100/71 (81) 94 Room Air Laboratory Results: Last 24 Hours Test 05/07/17 05:37 White Blood Count 9.72 K/uL Red Blood Count 4.52 M/uL Hemoglobin 12.8 g/dL Hematocrit 39.4 % Mean Corpuscular Volume 87.2 fL Mean Corpuscular Hemoglobin 28.3 pg Mean Corpuscular Hemoglobin Concent 32.5 g/dl Platelet Count 237 K/uL Mean Platelet Volume 10.3 fL Neutrophils (%) (Auto) 69.1 % Lymphocytes (%) (Auto) 22.3 % Monocytes (%) (Auto) 7.0 % Eosinophils (%) (Auto) 1.1 % Basophils (%) (Auto) 0.3 % Neutrophils # (Auto) 6.71 K/uL Lymphocytes # (Auto) 2.17 K/uL Monocytes # (Auto) 0.68 K/uL Eosinophils # (Auto) 0.11 K/uL Basophils # (Auto) 0.03 K/uL RDW Standard Deviation 48.1 fL RDW Coefficient of Variation 15.0 % Immature Granulocyte % (Auto) 0.2 % Immature Granulocyte # (Auto) 0.02 K/uL Sodium Level 142 mmol/L Potassium Level 3.6 mmol/L Chloride Level 107 mmol/L Carbon Dioxide Level 27 mmol/L Anion Gap 8.0 mmol/L Blood Urea Nitrogen 10 mg/dl Creatinine 0.64 mg/dl Est Creatinine Clear Calc Drug Dose 106.9 ml/min Estimated GFR () 114.0 Estimated GFR (Non- 98.4 BUN/Creatinine Ratio 15.0 Random Glucose 99 mg/dl Calcium Level 8.7 mg/dl Phosphorus Level 2.4 mg/dl Magnesium Level 2.0 mg/dl Total Bilirubin 0.6 mg/dl Direct Bilirubin 0.1 mg/dl Aspartate Amino Transf (AST/SGOT) 78 U/L Alanine Aminotransferase (ALT/SGPT) 31 U/L Alkaline Phosphatase 54 U/L Troponin I 10.500 ng/ml Total Protein 6.7 gm/dl Albumin 3.0 gm/dl
[2017-05-08] VITALS (7 sets, daily range): BP systolic 109–129; BP diastolic 58–84; PULSE 76–96; TEMP 36.4–36.8; O2SAT 94–97
[2017-05-08 05:27] LABS: BASO % 0.4 %; BASO ABS # 0.04 K/uL (0-0.2); EOS % 2.1 %; EOS ABS # 0.21 K/uL (0-0.5); HEMATOCRIT 38.5 % (37-47); HEMOGLOBIN 12.8 g/dL (12.0-16.0); IG# 0.04 K/uL (0.00-0.02); LYMPH % 23.2 %; LYMPH ABS # 2.29 K/uL (1.2-3.4); MEAN CELL VOLUME 85.9 fL (80-100); MEAN CORPUSCULAR HEMOGLOBIN 28.6 pg (25-34); MEAN CORPUSCULAR HGB CONC 33.2 g/dl (32-36); MEAN PLATELET VOLUME 10.2 fL (7.4-10.4); MONO % 7.1 %; NEUT % 66.8 %; NEUT ABS # 6.58 K/uL (1.4-6.5); PLATELET COUNT 249 K/uL (130-400); RED CELL DISTRIBUTION WIDTH CV 14.9 % (11.5-14.5); RED CELL DISTRIBUTION WIDTH SD 46.9 fL (36.4-46.3); WHITE BLOOD COUNT 9.86 K/uL (4.8-10.8)
[2017-05-08 05:52] LABS: CALCIUM 8.7 mg/dl (8.5-10.1); CREATININE 0.63 mg/dl (0.60-1.20); POTASSIUM 3.5 mmol/L (3.5-5.1)
[2017-05-08 05:58] LABS: PHOSPHORUS 3.3 mg/dl (2.5-4.9); TOTAL PROTEIN 7.1 gm/dl (6.4-8.2)
[2017-05-08] MEDS: IPRATROPIUM BROMIDE/ALBUTEROL respimat INH INH SCH ×2 (08:22→13:32)
[2017-05-08] MEDS: AMIODARONE 200 MG TAB PO SCH (08:23)
[2017-05-08] MEDS: PANTOprazole SOD 40 MG TAB PO SCH (08:23)
[2017-05-08] MEDS: AMOXICILLIN/CLAVULANATE TAB 875 MG TAB PO SCH (08:23)
[2017-05-08] MEDS: TICAGRELOR 90 MG TAB PO SCH (08:23)
[2017-05-08] MEDS: LISINOPRIL 5 MG TAB PO SCH (08:24)
[2017-05-08] MEDS: ASPIRIN 81 MG ECTAB PO SCH (08:24)
[2017-05-08] MEDS: POT PHOSPHATE MONOBASIC W/ SOD TAB PO SCH ×2 (08:24→13:32)
[2017-05-08] MEDS: METOPROLOL TARTRATE 50 MG TAB PO SCH (08:24)
[2017-05-08] MEDS: APIXABAN 2.5 MG TAB PO SCH (08:25)
[2017-05-08] MEDS: ATORVASTATIN 40 MG TAB PO SCH (08:25)
[2017-05-08] MEDS: AMIODARONE / D5W 200 ML IV SCH (10:09)
[2017-05-08] MEDS ORDERED: ELQ25 PO (12:58)
[2017-05-08] MEDS ORDERED: LPT40 PO (12:58)
[2017-05-08] MEDS ORDERED: ASPEC81 PO (12:58)
[2017-05-08] MEDS ORDERED: CRD200 PO (12:58)
[2017-05-08] MEDS ORDERED: CLOP1TAB5 PO (12:58)
[2017-05-08] MEDS ORDERED: AMOX1TAB43 PO (12:58)
[2017-05-08] MEDS ORDERED: METO50TA16 PO (12:58)
[2017-05-08] MEDS ORDERED: LSN5 PO (12:58)
--- NOTE | 2017-05-08 13:01 | Discharge Instructions ---
Discharge Instructions Date of Service May 08, 2017. Admission Reason for Admission: Stemi Of Anterior Wall Discharge Discharge Diagnosis / Problem: ACUTE HEART ATTACK, ASPIRATION PNEUMONIA, TRANSIENT AFIB Discharge Goals Goal(s): Diagnostic testing, Therapeutic intervention Activity Recommendations Activity Limitations: as noted below Lifting Limitations: gradually increase as tolerated . Instructions / Follow-Up Instructions / Follow-Up 56 F presented as acute heart alert for stemi, sustained 3 stents in LAD and tributaries, does have depressed EF on echo to 40-45%, did have emesis and aspiration at end of procedure with cxr consistent with chemical pneumonitiS with concern for pneumonia CAD, STemi, on aspirin, plavix, metoprolol tartarate increased to 50 bid, lisinopril, and atorvostatin 80 mg New onset afib RVR, converted to NSR will continue with amiodaonre and eliquis for one month and then re evaluate by Dr Jackson [employer] pneumonitis,doing well on augmentin bid continue for additional 3 days Current Hospital Diet Patient's current hospital diet: AHA Diet (Heart Healthy) Discharge Diet Recommended Diet: AHA Diet (Heart Healthy) Pending Studies Studies pending at discharge: no Laboratory Results Hemoglobin A1c Test 05/05/17 05:57 Range/Units Estimated Average Glucose 123 mg/dl Hemoglobin A1c 5.9 H 4.5-5.6 % Lipid Panel Test 05/05/17 05:57 Range/Units Triglycerides Level 83 0-150 mg/dl Cholesterol Level 246 H 0-200 mg/dl HDL Cholesterol 57 mg/dl Cholesterol/HDL Ratio 4.3 LDL Cholesterol, Calculated 172 mg/dl Medical Emergencies . Who to Call and When: Medical Emergencies: If at any time you feel your situation is an emergency, please call 911 immediately. . Non-Emergent Contact Non-Emergency issues call your: Primary Care Provider, Rub[employer] Call Non-Emergent contact if: temperature is above 101, your pain is unusual for you . . "Provider Documentation" section prepared by Iftikhar Montes. . VTE Core Measure Inpt VTE Proph given/why not?: Unfractionated heparin SQ
[2017-05-08] MEDS ORDERED: CLOPIDOGREL BISULFATE 75 MG TAB PO ONE (13:30)
--- NOTE | 2017-05-08 14:44 | Cardiology Follow-Up ---
Subjective Subjective Date of Service: May 08, 2017. Pt evaluation today including: conversation w/ patient, conversation w/ family , physical exam, chart review, lab review, review of studies, review of inpatient medication list Additional Details: Feeling well. No chest pain. No other new complaints. Tele reviewed -- remains in sinus rhythm. Problem List Medical Problems: (1) ST elevation myocardial infarction (STEMI) of anterior wall Status: Acute Review of Systems Constitutional: No fever, No chills Respiratory: No cough, No wheezing, No shortness of breath Cardiac: No chest pain, No edema Abdomen: No pain, No nausea, No vomiting, No diarrhea Musculoskeletal: No joint pain, No muscle pain Female : No dysuria Neurologic: No memory loss, No weakness Psychiatric: No depression symptoms, No anhedonism, No anxiety Heme: No abnormal bleeding/bruising Endo: + fatigue Skin: No rash Objective Vital Signs Last Vital Signs Documentation Date Time Temp Pulse Resp B/P (MAP) Pulse Ox O2 Delivery O2 Flow Rate FiO2 05/08/17 09:00 87 18 05/08/17 08:21 36.4 109/84 (92) 95 Room Air 05/06/17 07:10 2.0 Physical Exam: General Appearance: no apparent distress ENT: hearing grossly normal Neck: no JVD Respiratory/Chest: chest non-tender, lungs clear, normal breath sounds Cardiovascular: regular rate, rhythm, no murmur Abdomen: normal bowel sounds, non tender, soft Extremities: no pedal edema, no calf tenderness Neurologic/Psychiatric: alert, oriented x 3 Skin: no rash Assessment and Plan 1. Anterior STEMI s/p PPCI with 3 ORLIN (2 to LAD, 1 to Diagonal) 2. LV dysfunction, LVEF 40-45% 3. New onset AF/Aflutter 4. Paroxysmal SVT 5. Aspiration pneumonitis/Asthma 6. Hypertension 7. Dyslipidemia Remains in sinus rhythm. No significant chest pain. -- Continue Amiodarone 200mg daily for 1 month -- Cotinue metoprolol 50mg BID -- Continue Eliquis 5mg BID --> plan for ambulatory monitoring at some point as an outpatient to assess for additional AF/need for long-term anticoagulation. -- Continue DAPT - transition to plavix prior to discharge with need for triple therapy -- continue CARLI and statin From a cardiac standpoint OK for discharge today. Medications: Current Inpatient Medications Medications (Trade) Dose Ordered Sig/Fabiola Route Start Time Stop Time Status Last Admin Dose Admin Aspirin (Ecotrin Tab) 81 mg QAM PO 05/05/17 09:00 06/04/17 08:59 05/08/17 08:24 81 MG Al Hydrox/Mg Hydrox/Simethicone (Maalox Max Susp) 15 ml Q4H PRN PO 05/05/17 04:45 06/04/17 04:44 Magnesium Hydroxide (Milk Of Magnesia Susp) 30 ml Q12H PRN PO 05/05/17 04:45 06/04/17 04:44 Ondansetron HCl (Zofran Inj) 4 mg Q6H PRN IV 05/05/17 04:45 06/04/17 04:44 Morphine Sulfate (MoRPHine SULFATE INJ) 2 mg Q2H PRN IV 05/05/17 04:45 05/19/17 04:44 Morphine Sulfate (MoRPHine SULFATE INJ) 4 mg Q2H PRN IV 05/05/17 04:45 05/19/17 04:44 Nitroglycerin (Nitrostat Tab) 0.4 mg UD PRN SL 05/05/17 04:45 06/04/17 04:44 Atorvastatin Calcium (Lipitor Tab) 80 mg QAM PO 05/05/17 09:00 06/04/17 08:59 05/08/17 08:25 80 MG Lisinopril (Zestril Tab) 5 mg QAM PO 05/05/17 09:00 06/04/17 08:59 05/08/17 08:24 5 MG Acetaminophen (Tylenol Tab) 650 mg Q4H PRN PO 05/05/17 04:45 06/04/17 04:44 05/06/17 09:16 650 MG Ticagrelor (Brilinta Tab) 90 mg BID PO 05/05/17 20:00 06/04/17 19:59 05/08/17 08:23 90 MG Lorazepam (Ativan Inj) 1 mg Q6H PRN IV 05/05/17 05:00 06/04/17 04:59 Amoxicillin/ Clavulanate Potassium (Augmentin Tab) 875 mg BIDM PO 05/06/17 11:30 05/13/17 07:14 05/08/17 08:23 875 MG Albuterol/ Ipratropium (Combivent Respimat Inh) 1 puffs QID INH 05/06/17 09:00 06/05/17 08:59 05/08/17 13:32 1 PUFFS Potassium/ Phosphorus/Sodium (Phospha 250 Neutral 155-852-130 Mg) 1 tab QID PO 05/06/17 09:00 06/05/17 08:59 05/08/17 13:32 1 TAB Apixaban (Eliquis Tab) 5 mg Q12 PO 05/06/17 15:30 06/05/17 15:29 05/08/17 08:25 5 MG Metoprolol Tartrate (Lopressor Tab) 50 mg Q12 PO 05/07/17 09:00 06/04/17 08:59 05/08/17 08:24 50 MG Amiodarone HCl (Cordarone Tab) 200 mg QAM PO 05/07/17 10:30 06/06/17 10:29 05/08/17 08:23 200 MG Lab Results: 05/08/17 04:49 Red Blood Count 4.48, Mean Corpuscular Volume 85.9, Mean Corpuscular Hemoglobin 28.6, Mean Corpuscular Hemoglobin Concent 33.2, Mean Platelet Volume 10.2, Neutrophils (%) (Auto) 66.8, Lymphocytes (%) (Auto) 23.2, Monocytes (%) (Auto) 7.1, Eosinophils (%) (Auto) 2.1, Basophils (%) (Auto) 0.4, Neutrophils # (Auto) 6.58, Lymphocytes # (Auto) 2.29, Monocytes # (Auto) 0.70, Eosinophils # (Auto) 0.21, Basophils # (Auto) 0.04 05/08/17 04:49 Test 05/08/17 04:49 White Blood Count 9.86 K/uL (4.8-10.8) Red Blood Count 4.48 M/uL (4.2-5.4) Hemoglobin 12.8 g/dL (12.0-16.0) Hematocrit 38.5 % (37-47) Mean Corpuscular Volume 85.9 fL (80-100) Mean Corpuscular Hemoglobin 28.6 pg (25-34) Mean Corpuscular Hemoglobin Concent 33.2 g/dl (32-36) Platelet Count 249 K/uL (130-400) Mean Platelet Volume 10.2 fL (7.4-10.4) Neutrophils (%) (Auto) 66.8 % Lymphocytes (%) (Auto) 23.2 % Monocytes (%) (Auto) 7.1 % Eosinophils (%) (Auto) 2.1 % Basophils (%) (Auto) 0.4 % Neutrophils # (Auto) 6.58 K/uL (1.4-6.5) Lymphocytes # (Auto) 2.29 K/uL (1.2-3.4) Monocytes # (Auto) 0.70 K/uL (0.11-0.59) Eosinophils # (Auto) 0.21 K/uL (0-0.5) Basophils # (Auto) 0.04 K/uL (0-0.2) RDW Standard Deviation 46.9 fL (36.4-46.3) RDW Coefficient of Variation 14.9 % (11.5-14.5) Immature Granulocyte % (Auto) 0.4 % Immature Granulocyte # (Auto) 0.04 K/uL (0.00-0.02) Anion Gap 7.0 mmol/L (3-11) Est Creatinine Clear Calc Drug Dose 108.6 ml/min Estimated GFR () 114.6 Estimated GFR (Non- 98.9 BUN/Creatinine Ratio 19.4 (10-20) Calcium Level 8.7 mg/dl (8.5-10.1) Phosphorus Level 3.3 mg/dl (2.5-4.9) Magnesium Level 2.3 mg/dl (1.8-2.4) Total Bilirubin 0.8 mg/dl (0.2-1) Direct Bilirubin 0.2 mg/dl (0-0.2) Aspartate Amino Transf (AST/SGOT) 51 U/L (15-37) Alanine Aminotransferase (ALT/SGPT) 30 U/L (12-78) Alkaline Phosphatase 69 U/L (45-117) Total Protein 7.1 gm/dl (6.4-8.2) Albumin 3.0 gm/dl (3.4-5.0)
--- NOTE | 2017-05-08 18:01 | Discharge Summary ---
Discharge Summary Date of Service May 08, 2017. Discharge Summary Admission Date: May 05, 2017 at 04:36 Discharge Date: May 08, 2017 Discharge Disposition: Home Principal Diagnosis: Stemi, Aspiration pneumonitis, afib with conversion to sinus Medication Reconciliation New Medications: Clopidogrel Bisulfate (Plavix) 75 Mg Tab 75 MG PO DAILY, #90 TAB 3 Refills Amiodarone HCl (Amiodarone HCl) 200 Mg Tab 200 MG PO QAM, #30 TAB Amoxicillin & Pot Clavulanate (Amoxicillin/Clavulanate P) 1 Tab Tab 875 MG PO BIDM, #6 TAB Apixaban (Eliquis) 2.5 Mg Tab 5 MG PO Q12, #60 TAB Aspirin (Aspirin EC Low Dose) 81 Mg Ectab 81 MG PO QAM, #90 DOSE Atorvastatin (Lipitor) 40 Mg Tab 80 MG PO QAM, #90 TAB 3 Refills Lisinopril (Lisinopril) 5 Mg Tab 5 MG PO QAM, #90 TAB Metoprolol Tartrate (Lopressor) (Lopressor) 50 Mg Tab 50 MG PO Q12, #60 TAB 6 Refills Continued Medications: Calcium Carbonate (Tums) 500 Mg Chew 1 TAB PO DIRECTED Multivitamin (Multivitamin) Tab 1 TAB PO DAILY, TAB Discontinued Medications: Aspirin (Aspirin Ec) Unknown Strength Tab Unknown Dose PO DAILY Metoprolol Succinate (Toprol Xl) Unknown Strength Tabcr Unknown Dose PO DAILY, #30 TAB Discharge Exam Review of Systems: Constitutional: No fever, No chills, No weakness Respiratory: No cough, No shortness of breath, No dyspnea on exertion Cardiovascular: No chest pain, No orthopnea, No edema Neurologic: No memory loss, No paralysis, No numbness/tingling Psychiatric: No depression symptoms, No anhedonism Physical Exam: General Appearance: WD/WN, no apparent distress Eyes: normal inspection, sclerae normal Neck: supple, no carotid bruits Respiratory/Chest: chest non-tender Cardiovascular: regular rate, rhythm Abdomen / GI: normal bowel sounds, non tender, soft Hospital Course 56 F presented as acute heart alert for stemi, sustained 3 stents in LAD and tributaries, does have depressed EF on echo to 40-45%, did have emesis and aspiration at end of procedure with cxr consistent with chemical pneumonitis, no pneumonia clinically CAD, STemi, on asa, Brilinta, metoprolol tartarate increased to 50 bid, lisinopril, and atorvo 80 mg New onset afib RVR,now in NSR amiodarone and eliquis,for one month Chemical pneumonitis,doing well on augmentin bid finish an outpatient course follow up with Dr Jackson Total Time Spent: Greater than 30 minutes This includes examination of the patient, discharge planning, medication reconciliation, and communication with other providers. Discharge Instructions Please refer to the electronic Patient Visit Report (Discharge Instructions) for additional information.
== END 2017-05-08 15:22 | disposition home or self-care (01) | DRG 247 ==
LOC: C.EDB 01:54 → ENRESERV 02:58 → C.MSICU 04:36
PROVIDERS: ADMIT Student in an Organized Health Care Education/Training Program; ATTEND Internal Medicine
PROC: B211YZZ Fluoroscopy of Multiple Coronary Arteries using Other Contrast (ICD-10-PCS; principal; 2017-05-05 01:52)
PROC: 027136Z Dilation of Coronary Artery, Two Arteries with Three Drug-eluting Intraluminal Devices, Percutaneous Approach (ICD-10-PCS; principal; 2017-05-05 01:52)
DX: I21.09 ST elevation (STEMI) myocardial infarction involving other coronary artery of anterior wall (principal); J95.4 Chemical pneumonitis due to anesthesia; I47.1 Supraventricular tachycardia; I48.0 Paroxysmal atrial fibrillation; I25.10 Atherosclerotic heart disease of native coronary artery without angina pectoris; I10 Essential (primary) hypertension; R11.2 Nausea with vomiting, unspecified; K21.9 Gastro-esophageal reflux disease without esophagitis; E78.5 Hyperlipidemia, unspecified; J45.909 Unspecified asthma, uncomplicated; Z79.82 Long term (current) use of aspirin; Z79.899 Other long term (current) drug therapy

== ENCOUNTER → 2017-11-05 | Outpatient (CLI) | payer BC ==
[~2017-11-05] MED LIST: ASPI-320 PO; CLOP1TAB5 PO; ELQ25 PO; HYZ/50125 PO; LPT40 PO; METO50TA8 PO; MULT-506 PO
--- NOTE | 2017-11-06 13:40 | MAMMOGRAPHY REPORT ---
BILATERAL DIGITAL SCREENING MAMMOGRAM TOMOSYNTHESIS WITH CAD: 11/05/2017 CLINICAL HISTORY: Routine screening examination. TECHNIQUE: The study was acquired using full field digital technology and interpreted from soft copy. Breast tomosynthesis in addition to standard 2D mammography was performed. Current study was also ev aluated with a Computer Aided Detection (CAD) system. COMPARISON: Comparison is made to exams dated: 11/01/2016 mammogram, 10/24/2015 mammogram, 10/18/2014 cailin mogram, 10/15/2013 mammogram, 09/30/2012 mammogram, and 09/24/2011 mammogram - [facility] er. BREAST COMPOSITION: The tissue of both breasts is heterogeneously dense, which may obscure small mass es. FINDINGS: There are diffuse bilateral benign-appearing microcalcifications and multiple bilateral cir cumscribed masses in the breasts, fluctuating in size comparing to prior mammograms, most likely repr esenting fluctuating cysts. No suspicious spiculated or irregular mass, architectural distortion or c luster of new, suspicious microcalcifications is seen. IMPRESSION: ACR BI-RADS CATEGORY 1: NEGATIVE There is no mammographic evidence of malignancy. A 1 year screening mammogram is recommended.( [id number]) The patient will receive written notification of the results. Some breast cancers are not detected with mammography. A negative mammographic report should not thuy y biopsy if a clinically suggestive mass is present. Sudha Vila M.D. ay/:11/05/2017 16:35:17 Echo Vascular Technologist: RT Danny(Maranda)(M), [facility] letter sent: Normal 1/2 BI-RADS Code: ACR BI-RADS Category 1: Negative
== END | disposition home or self-care (01) ==
LOC: C.MAMM 14:44
PROVIDERS: ATTEND Obstetrics & Gynecology
DX: Z12.31 Encounter for screening mammogram for malignant neoplasm of breast (principal)